=== PATIENT | male | born 1965 | race Caucasian/White ===

== ENCOUNTER 2016-05-07 10:39 | Inpatient (IN) | payer MEDICARE, OTHER ==
[2016-05-07] MEDS ORDERED: KETOROLAC 30 MG/ML 1 ML VIAL IVP STA (11:17)
[2016-05-07] MEDS ORDERED: SODIUM CHLORIDE 0.9% 1,000 ML IV ONE ×2 (11:17→12:33)
[2016-05-07] MEDS ORDERED: ONDANSETRON 4 MG/2 ML VIAL IVP STA (11:17)
[2016-05-07 11:48] LABS: Basophils % (A) 0 %; CH 29.9; CHCM 33.4; Eosinophils % (A) 0 %; HCT 54.5 % (39.0-53.0); HDW 2.86; HGB 17.6 gm/dL (13.0-17.5); Luc # (Auto) 0.04; Luc % (Auto) 1; Lymphocytes # (A) 0.4 k/uL (1.0-4.8); Lymphocytes % (A) 5 %; MCH 29.1 pg (25.0-35.0); MCHC 32.3 g/dL (31.0-37.0); MCV 90.2 fL (80.0-100.0); Mean Platelet Volume 9.5; Monocytes # (A) 0.3 k/uL (0-1.0); Monocytes % (A) 4 %; Neutrophils # (A) 6.7 k/uL (1.3-7.7); Neutrophils % (A) 90 %; RBC 6.04 m/uL (4.30-5.90); RDW 14.3 % (11.5-15.5); WBC 7.4 k/uL (3.8-10.6); WBC (Perox) 7.58
--- NOTE | 2016-05-07 11:48 | ED ---
General Adult HPI - General Chief complaint: Abdominal Pain Stated complaint: NVD, CHEST CONGESTION Time Seen by Provider: 05/07/16 11:07 Source: patient, RN notes reviewed Mode of arrival: ambulatory Limitations: no limitations - History of Present Illness Initial comments: 50-year-old male presenting for nausea vomiting and diarrhea which began this morning around 6 AM. He states that he has had several loose stools during this time. He also states he has some upper abdominal and epigastric tenderness which began after vomiting. He states some subjective fevers and chills. He denies any significant medical history otherwise. He denies any chest pain or shortness of breath. He does state he has a history of MS, but denies any new significant weakness or issue. - Related Data Home Medications Medication Instructions Recorded Confirmed Gabapentin 600 mg PO TID 03/01/14 05/07/16 Rivaroxaban [Xarelto] 20 mg PO AC-SUPPER 01/11/15 05/07/16 Multivitamins, Thera [Multivitamin] 1 tab PO DAILY 11/17/15 05/07/16 Omeprazole 20 mg PO BID 11/17/15 05/07/16 Digoxin [Lanoxin] 125 mcg PO DAILY 04/07/16 05/07/16 Acetaminophen-Codeine 300-30mg 1 tab PO Q6H PRN 05/07/16 05/07/16 [Tylenol #3] Baclofen [Lioresal] 10 mg PO TID PRN 05/07/16 05/07/16 Allergies Allergy/AdvReac Type Severity Reaction Status Date / Time No Known Allergies Allergy Verified 05/07/16 11:57 Review of Systems ROS Statement: Those systems with pertinent positive or pertinent negative responses have been documented in the HPI. Constitutional: No fevers. No chills. No change in appetite. No unexpected weight loss. Eyes: No visual changes. No eye pain. No sensitivity to light. HENT: No sinus pressure. No ear pain. No hearing changes. No epistaxis. No sore throat. Respiratory: No cough. No SOB. No wheezing. Cardiovascular: No chest pain. No palpitations. No lower extremity edema. Abdomen: Positive abdominal pain. Positive nausea. Positive vomiting. Positive diarrhea. Genitourinary: No dysuria. No hematuria. No difficulty urinating. No flank pain. Musculoskeletal: No injury. No back pain. No myalgias. Skin: No rash. No lesions. No lacerations. Neuro: No gross strength deficits. No LOC. No seizures. No headache. Psych: No confusion. No memory changes. No anxiety/depression. ROS Other: All systems not noted in ROS Statement are negative. Past Medical History Past Medical History: Atrial Fibrillation, Hyperlipidemia, Musculoskeletal Disorder, Pneumonia, Skin Disorder, Sleep Apnea/CPAP/BIPAP Additional Past Medical History / Comment(s): Pt had recent dobutamine stress echo 10/2015 -normal, MYTONIC MUSCULAR DYSTROPHY- USES OXYGEN at night via cpap , PSORIASIS. History of Any Multi-Drug Resistant Organisms: None Reported Past Surgical History: Heart Catheterization Additional Past Surgical History / Comment(s): bilateral cataract surgery, clean cardiac cath -2013, colonoscopy with 2 polyps removed Past Anesthesia/Blood Transfusion Reactions: No Reported Reaction Additional Past Anesthesia/Blood Transfusion Reaction / Comment(s): Pt states due to mytonic muscular dystrophy he is unable to have general or spinal anesthesia. Past Psychological History: No Psychological Hx Reported Additional Psychological History / Comment(s): Pt resides with his mother. He uses no assistive device. He drives. Smoking Status: Former smoker Past Alcohol Use History: None Reported Additional Past Alcohol Use History / Comment(s): started smoking at age 11 smoked 1 ppd till age 29 Past Drug Use History: None Reported - Past Family History Father Family Medical History: GERD/Reflux Additional Family Medical History / Comment(s): myotonic muscular dystropy, gerd. father is no longer living. Mother History Unknown: Yes Family Medical History: Cancer Additional Family Medical History / Comment(s): BREAST CANCER General Exam - General Exam Comments Initial Comments: General: Awake and Alert. No acute distress. Does not appear acutely ill. Eyes: NATALIA, EOM intact. No nystagmus. No scleral icterus. HENT: Atraumatic, normocephalic. Mucous membranes appear dry. Trachea midline. Neck: The neck is supple, there is no tenderness or JVD. Cardiovascular: Regular rate and rhythm. No murmur, rub, or gallop is appreciated. Distal pulses intact. Respiratory: Lungs are clear to auscultation bilaterally. No wheezes, rales, rhonchi. No respiratory distress. Gastrointestinal: Soft, with mild epigastric tenderness. No rebound or guarding. Non-distended. No masses or organomegaly noted. No CVA tenderness. Musculoskeletal: No tenderness. Normal ROM. No gross deformity. No strength deficits. Neurological: A&Ox3. CN II-XII grossly intact, There are no obvious motor or sensory deficits. Coordination appears grossly intact. Speech is normal. Skin: Skin is warm and dry and no rashes or lesions are noted. Psychiatric: Cooperative, appropriate mood & affect, normal judgment. Limitations: no limitations Course Vital Signs 05/07/16 05/07/16 05/07/16 10:47 11:45 12:45 Temperature 97.3 F L Pulse Rate 94 80 90 Respiratory 18 16 16 Rate Blood Pressure 113/78 107/69 108/75 O2 Sat by Pulse 96 90 L 90 L Oximetry 05/07/16 05/07/16 05/07/16 13:45 15:10 16:29 Temperature 7.9 F L Pulse Rate 84 86 98 Respiratory 16 16 18 Rate Blood Pressure 107/71 108/71 108/65 O2 Sat by Pulse 94 L 92 L 95 Oximetry Medical Decision Making - Medical Decision Making 50-year-old male presenting for nausea and vomiting and diarrhea. Patient appears clinically with signs of dehydration. Was started on IV fluids. Lab workup was performed. Given upper respiratory symptoms and GI symptoms influenza was performed which is negative. Lab workup is showing evidence of hemoconcentration and electrolyte abnormalities concerning for hypovolemia. Hypernatremia as noted. Patient was given 2 L of fluid for evidence of hypovolemia. Electrolytes were repeated which showed no improvement of his hypernatremia. Discussed with patient results and plan for admission for further treatment and monitoring hypernatremia and hypokalemia. Patient was started on half-normal saline. I called and discussed with Dr. Morales who is agreeable with plan for admission. - Lab Data Result diagrams: 05/07/16 11:35 05/07/16 14:55 Lab Results 05/07/16 05/07/16 05/07/16 Range/Units 11:35 11:35 14:55 WBC 7.4 (3.8-10.6) k/uL RBC 6.04 H (4.30-5.90) m/uL Hgb 17.6 H (13.0-17.5) gm/dL Hct 54.5 H (39.0-53.0) % MCV 90.2 (80.0-100.0) fL MCH 29.1 (25.0-35.0) pg MCHC 32.3 (31.0-37.0) g/dL RDW 14.3 (11.5-15.5) % Plt Count 133 L (150-450) k/uL Neutrophils % 90 % Lymphocytes % 5 % Monocytes % 4 % Eosinophils % 0 % Basophils % 0 % Neutrophils # 6.7 (1.3-7.7) k/uL Lymphocytes # 0.4 L (1.0-4.8) k/uL Monocytes # 0.3 (0-1.0) k/uL Eosinophils # 0.0 (0-0.7) k/uL Basophils # 0.0 (0-0.2) k/uL Sodium 150 H 150 H (137-145) mmol/L Potassium 4.6 4.7 (3.5-5.1) mmol/L Chloride 104 111 H (98-107) mmol/L Carbon Dioxide 37 H 24 (22-30) mmol/L Anion Gap 9 15 mmol/L BUN 18 15 (9-20) mg/dL Creatinine 0.71 0.58 L (0.66-1.25) mg/dL Est GFR (MDRD) Af Amer >60 >60 (>60 ml/min/1.73 sqM) Est GFR (MDRD) Non-Af >60 >60 (>60 ml/min/1.73 sqM) Glucose 143 H 103 H (74-99) mg/dL Calcium 9.4 8.7 (8.4-10.2) mg/dL Magnesium 2.1 (1.6-2.3) mg/dL Total Bilirubin 0.5 (0.2-1.3) mg/dL AST 38 (17-59) U/L ALT 45 (21-72) U/L Alkaline Phosphatase 118 (38-126) U/L Total Protein 6.8 (6.3-8.2) g/dL Albumin 3.8 (3.5-5.0) g/dL Lipase 113 (23-300) U/L Influenza Type A RNA (Not Detectd) Influenza Type B (PCR) (Not Detectd) 05/07/16 Range/Units 15:00 WBC (3.8-10.6) k/uL RBC (4.30-5.90) m/uL Hgb (13.0-17.5) gm/dL Hct (39.0-53.0) % MCV (80.0-100.0) fL MCH (25.0-35.0) pg MCHC (31.0-37.0) g/dL RDW (11.5-15.5) % Plt Count (150-450) k/uL Neutrophils % % Lymphocytes % % Monocytes % % Eosinophils % % Basophils % % Neutrophils # (1.3-7.7) k/uL Lymphocytes # (1.0-4.8) k/uL Monocytes # (0-1.0) k/uL Eosinophils # (0-0.7) k/uL Basophils # (0-0.2) k/uL Sodium (137-145) mmol/L Potassium (3.5-5.1) mmol/L Chloride (98-107) mmol/L Carbon Dioxide (22-30) mmol/L Anion Gap mmol/L BUN (9-20) mg/dL Creatinine (0.66-1.25) mg/dL Est GFR (MDRD) Af Amer (>60 ml/min/1.73 sqM) Est GFR (MDRD) Non-Af (>60 ml/min/1.73 sqM) Glucose (74-99) mg/dL Calcium (8.4-10.2) mg/dL Magnesium (1.6-2.3) mg/dL Total Bilirubin (0.2-1.3) mg/dL AST (17-59) U/L ALT (21-72) U/L Alkaline Phosphatase (38-126) U/L Total Protein (6.3-8.2) g/dL Albumin (3.5-5.0) g/dL Lipase (23-300) U/L Influenza Type A RNA Not Detected (Not Detectd) Influenza Type B (PCR) Not Detected (Not Detectd) Disposition Clinical Impression: Hypernatremia, Hypovolemia, Nausea, vomiting and diarrhea Disposition: ADMITTED IP TO THIS [facility] Condition: Stable Decision to Admit Reason: Admit from EC
[2016-05-07 12:14] LABS: ALT 45 U/L (21-72); AST 38 U/L (17-59); Alkaline Phosphatase 118 U/L (38-126); Anion Gap 9 mmol/L; Blood Urea Nitrogen 18 mg/dL (9-20); Calcium 9.4 mg/dL (8.4-10.2); Carbon Dioxide 37 mmol/L (22-30); Chloride 104 mmol/L (98-107); Glucose 143 mg/dL (74-99); Magnesium 2.1 mg/dL (1.6-2.3); Non-African American GFR(MDRD) >60 (>60 ml/min/1.73 sqM); Potassium 4.6 mmol/L (3.5-5.1); Sodium 150 mmol/L (137-145); Total Bilirubin 0.5 mg/dL (0.2-1.3); Total Protein 6.8 g/dL (6.3-8.2)
[2016-05-07] MEDS ORDERED: FAMOTIDINE 20 MG/2 ML VIAL IV STA (15:12)
[2016-05-07 15:19] LABS: Anion Gap 15 mmol/L; Blood Urea Nitrogen 15 mg/dL (9-20); Calcium 8.7 mg/dL (8.4-10.2); Carbon Dioxide 24 mmol/L (22-30); Chloride 111 mmol/L (98-107); Glucose 103 mg/dL (74-99); Non-African American GFR(MDRD) >60 (>60 ml/min/1.73 sqM); Sodium 150 mmol/L (137-145)
[2016-05-07 15:22] LABS: Potassium 4.7 mmol/L (3.5-5.1)
[2016-05-07] MEDS ORDERED: SODIUM CHLORIDE 0.45% 1,000 ML IV SCH (15:45)
[2016-05-07] MEDS ORDERED: ONDANSETRON 4 MG/2 ML VIAL IVP PRN (16:04)
[2016-05-07] MEDS ORDERED: NALOXONE 0.4 MG/ML 1 ML VIAL IV PRN (16:04)
[2016-05-07] MEDS ORDERED: KETOROLAC 30 MG/ML 1 ML VIAL IVP PRN (16:04)
[2016-05-07] MEDS ORDERED: ACETAMINOPHEN TAB 325 MG TAB PO PRN (16:04)
[2016-05-07] MEDS: SODIUM CHLORIDE 0.45% 1,000 ML IV SCH (17:20)
[2016-05-07] MEDS ORDERED: BACLOFEN 10 MG TAB PO PRN (18:12)
[2016-05-07] MEDS ORDERED: Acetaminophen-Codeine 300-30mg TAB PO PRN (18:12)
[2016-05-07] MEDS ORDERED: METOCLOPRAMIDE 5 MG/ML 2 ML VIAL IVP PRN (18:13)
[2016-05-07 19:54] LABS: INR 1.5 (<1.1); Prothrombin Time 14.2 sec (9.0-12.0)
[2016-05-07] MEDS: PANTOPRAZOLE 40 MG TABLET PO SCH (21:52)
[2016-05-07] MEDS: GABAPENTIN 300 MG CAP PO SCH (21:52)
[2016-05-08] MEDS: SODIUM CHLORIDE 0.45% 1,000 ML IV SCH ×5 (05:02→21:53)
[2016-05-08 08:04] LABS: Anion Gap 7 mmol/L; Blood Urea Nitrogen 11 mg/dL (9-20); Carbon Dioxide 30 mmol/L (22-30); Chloride 104 mmol/L (98-107); Glucose 111 mg/dL (74-99); Non-African American GFR(MDRD) >60 (>60 ml/min/1.73 sqM); Sodium 141 mmol/L (137-145)
[2016-05-08] MEDS: PANTOPRAZOLE 40 MG TABLET PO SCH ×2 (08:24→16:31)
[2016-05-08] MEDS: GABAPENTIN 300 MG CAP PO SCH ×3 (08:24→21:52)
[2016-05-08] MEDS: MULTIVITAMINS, THERA 1 EACH TAB PO SCH (08:25)
--- NOTE | 2016-05-08 15:41 | P.HPIM ---
History of Present Illness H&P Date: 05/08/16 56-year-old gentleman with history of muscular dystrophy comes in the hospital with abdominal pain inability to tolerate oral liquids or solids and watery diarrhea for the last 2 days. Patient stated that he was in his normal health prior to admission. In the ER patient was noted to have a sodium of 151. Patient was given 2 L of normal saline. Thereafter was started on half-normal saline at 1 50 mL per hour. Today patient states to have continued pain in his epigastric region denies having any fevers, chills, nausea. Patient was able to tolerate his diet today. Continues to have watery bowel movements. Denies using any antibiotics with the last 3 months. Review of Systems All systems: negative (Noted in HPI) Past Medical History Past Medical History: Atrial Fibrillation, Hyperlipidemia, Musculoskeletal Disorder, Pneumonia, Skin Disorder, Sleep Apnea/CPAP/BIPAP Additional Past Medical History / Comment(s): Pt had recent dobutamine stress echo 10/2015 -normal, MYTONIC MUSCULAR DYSTROPHY- USES OXYGEN at night via cpap , PSORIASIS. History of Any Multi-Drug Resistant Organisms: None Reported Past Surgical History: Heart Catheterization Additional Past Surgical History / Comment(s): bilateral cataract surgery, clean cardiac cath -2013, colonoscopy with 2 polyps removed Past Anesthesia/Blood Transfusion Reactions: No Reported Reaction Additional Past Anesthesia/Blood Transfusion Reaction / Comment(s): Pt states due to mytonic muscular dystrophy he is unable to have general or spinal anesthesia. Past Psychological History: No Psychological Hx Reported Additional Psychological History / Comment(s): Pt resides with his mother. He uses no assistive device. He drives. Smoking Status: Former smoker Past Alcohol Use History: None Reported Additional Past Alcohol Use History / Comment(s): started smoking at age 11 smoked 1 ppd till age 29 Past Drug Use History: None Reported - Past Family History Father Family Medical History: GERD/Reflux Additional Family Medical History / Comment(s): myotonic muscular dystropy, gerd. father is no longer living. Mother History Unknown: Yes Family Medical History: Cancer Additional Family Medical History / Comment(s): BREAST CANCER Medications and Allergies Home Medications Medication Instructions Recorded Confirmed Type Gabapentin 600 mg PO TID 03/01/14 05/07/16 History Rivaroxaban [Xarelto] 20 mg PO AC-SUPPER 01/11/15 05/07/16 History Multivitamins, Thera [Multivitamin] 1 tab PO DAILY 11/17/15 05/07/16 History Omeprazole 20 mg PO BID 11/17/15 05/07/16 History Digoxin [Lanoxin] 125 mcg PO DAILY 04/07/16 05/07/16 History Acetaminophen-Codeine 300-30mg 1 tab PO Q6H PRN 05/07/16 05/07/16 History [Tylenol #3] Baclofen [Lioresal] 10 mg PO TID PRN 05/07/16 05/07/16 History Allergies Allergy/AdvReac Type Severity Reaction Status Date / Time No Known Allergies Allergy Verified 05/07/16 11:57 Physical Exam Vitals: Vital Signs Temp Pulse Pulse Pulse Resp BP BP 05/08/16 15:00 98.3 F 100 18 118/69 05/08/16 08:00 108 H 77 18 05/08/16 07:00 97.8 F 77 18 107/71 05/08/16 00:00 108 H 95 16 05/07/16 22:19 98.6 F 95 16 110/74 05/07/16 17:28 97.7 F 108 H 16 126/77 05/07/16 16:29 7.9 F L 98 18 108/65 Pulse Ox 05/08/16 15:00 92 L 05/08/16 08:00 05/08/16 07:00 100 05/08/16 00:00 05/07/16 22:19 92 L 05/07/16 17:28 95 05/07/16 16:29 95 Intake and Output 05/08/16 05/08/16 05/08/16 06:59 14:59 22:59 Intake Total 380 Balance 380 Intake: Oral 380 Other: Voiding Method Toilet Toilet Urinal Urinal # Voids 3 Gen. appearance alert oriented 3 does not appear to be in distress Heart irregularly irregular no murmurs appreciated Lungs good air entry clear to auscultation Abdomen soft tender to palpation in epigastric region no rebound tenderness appreciated bowel sounds are intact Lower extremities no edema appreciated Results CBC & Chem 7: 05/07/16 11:35 05/08/16 07:29 Labs: Abnormal Lab Results - Last 24 Hours (Table) 05/08/16 Range/Units 07:29 Creatinine 0.60 L (0.66-1.25) mg/dL Glucose 111 H (74-99) mg/dL Calcium 8.0 L (8.4-10.2) mg/dL Thrombosis Risk Factor Assmnt - Choose All That Apply Any of the Below Risk Factors Present?: Yes Each Factor Represents 1 point: Age 41-60 years, Obesity (BMI >25) Other Risk Factors: No Other congenital or acquired thrombophilia - If yes, enter type in comment: No Thrombosis Risk Factor Assessment Total Risk Factor Score: 2 Thrombosis Risk Factor Assessment Level: Low Risk Assessment and Plan Plan: #1 intractable nausea vomiting likely secondary to gastroenteritis use of digoxin #2 hypernatremia which is hypovolemic secondary to #1 #3 muscular dystrophy #4 psoriasis psoriasis #5 dyslipidemia #6 chronic atrial fibrillation currently on any correlation #7 objective sleep apnea Plan Continue symptom control. Digoxin was held. Repeat sodium in the a.m. Patient will likely be discharged home in the next 24 hours.
[2016-05-08] MEDS ORDERED: RIVAROXABAN 10 MG TAB PO SCH (17:30)
[2016-05-08 22:21] VITALS: RESP 16
[2016-05-09] MEDS: SODIUM CHLORIDE 0.45% 1,000 ML IV SCH ×2 (06:45→11:39)
[2016-05-09 08:21] LABS: ALT 55 U/L (21-72); AST 68 U/L (17-59); Alkaline Phosphatase 119 U/L (38-126); Anion Gap 7 mmol/L; Blood Urea Nitrogen 9 mg/dL (9-20); Calcium 8.1 mg/dL (8.4-10.2); Carbon Dioxide 30 mmol/L (22-30); Chloride 110 mmol/L (98-107); Glucose 93 mg/dL (74-99); Non-African American GFR(MDRD) >60 (>60 ml/min/1.73 sqM); Potassium 3.8 mmol/L (3.5-5.1); Sodium 147 mmol/L (137-145); Total Protein 5.2 g/dL (6.3-8.2)
[2016-05-09] MEDS: MULTIVITAMINS, THERA 1 EACH TAB PO SCH (08:33)
[2016-05-09] MEDS: PANTOPRAZOLE 40 MG TABLET PO SCH (08:33)
[2016-05-09] MEDS: GABAPENTIN 300 MG CAP PO SCH ×2 (08:33→16:22)
[2016-05-09 08:36] LABS: Basophils % (A) 0 %; CH 29.4; CHCM 31.9; Eosinophils # (A) 0.1 k/uL (0-0.7); Eosinophils % (A) 1 %; HCT 46.9 % (39.0-53.0); HDW 2.92; HGB 15.4 gm/dL (13.0-17.5); Luc # (Auto) 0.29; Luc % (Auto) 3; Lymphocytes # (A) 0.8 k/uL (1.0-4.8); Lymphocytes % (A) 10 %; MCH 30.6 pg (25.0-35.0); MCV 92.9 fL (80.0-100.0); Mean Platelet Volume 9.1; Monocytes # (A) 0.8 k/uL (0-1.0); Monocytes % (A) 10 %; Neutrophils # (A) 6.5 k/uL (1.3-7.7); Neutrophils % (A) 76 %; RBC 5.05 m/uL (4.30-5.90); RDW 14.5 % (11.5-15.5); WBC 8.5 k/uL (3.8-10.6); WBC (Perox) 9.08
[2016-05-09 09:23] VITALS: BP 95/54; PULSE 87; TEMP 98.2
--- NOTE | 2016-05-09 15:50 | P.DS ---
Providers Date of admission: 05/07/16 16:04 Attending physician: Brady Morales MD Primary care physician: Ayla Barfield [facility] Course: 56-year-old gentleman with history of muscular dystrophy comes in the hospital with abdominal pain inability to tolerate oral liquids or solids and watery diarrhea for the last 2 days. Patient stated that he was in his normal health prior to admission. In the ER patient was noted to have a sodium of 151. Patient was given 2 L of normal saline. Thereafter was started on half-normal saline at 1 50 mL per hour. Today patient states to have continued pain in his epigastric region denies having any fevers, chills, nausea. Patient was able to tolerate his diet today. Continues to have watery bowel movements. Denies using any antibiotics with the last 3 months. On the day of discharge Patient is symptom free. States to be tolerating diet. Medications and Allergies Home Medications Medication Instructions Recorded Confirmed Type Gabapentin 600 mg PO TID 03/01/14 05/07/16 History Rivaroxaban [Xarelto] 20 mg PO AC-SUPPER 01/11/15 05/07/16 History Multivitamins, Thera [Multivitamin] 1 tab PO DAILY 11/17/15 05/07/16 History Omeprazole 20 mg PO BID 11/17/15 05/07/16 History Digoxin [Lanoxin] 125 mcg PO DAILY 04/07/16 05/07/16 History Acetaminophen-Codeine 300-30mg 1 tab PO Q6H PRN 05/07/16 05/07/16 History [Tylenol #3] Baclofen [Lioresal] 10 mg PO TID PRN 05/07/16 05/07/16 History Allergies Allergy/AdvReac Type Severity Reaction Status Date / Time No Known Allergies Allergy Verified 05/07/16 11:57 Physical Exam Vitals: Vital Signs Temp Pulse Pulse Pulse Resp BP BP 05/08/16 15:00 98.3 F 100 18 118/69 05/08/16 08:00 108 H 77 18 05/08/16 07:00 97.8 F 77 18 107/71 05/08/16 00:00 108 H 95 16 05/07/16 22:19 98.6 F 95 16 110/74 05/07/16 17:28 97.7 F 108 H 16 126/77 05/07/16 16:29 7.9 F L 98 18 108/65 Pulse Ox 05/08/16 15:00 92 L 05/08/16 08:00 05/08/16 07:00 100 05/08/16 00:00 05/07/16 22:19 92 L 05/07/16 17:28 95 05/07/16 16:29 95 Intake and Output 05/08/16 05/08/16 05/08/16 06:59 14:59 22:59 Intake Total 380 Balance 380 Intake: Oral 380 Other: Voiding Method Toilet Toilet Urinal Urinal # Voids 3 Gen. appearance alert oriented 3 does not appear to be in distress Heart irregularly irregular no murmurs appreciated Lungs good air entry clear to auscultation Abdomen soft tender to palpation in epigastric region no rebound tenderness appreciated bowel sounds are intact Lower extremities no edema appreciated Plan: #1 intractable nausea vomiting likely secondary to gastroenteritis #2 hypernatremia which is hypovolemic secondary to #1 #3 muscular dystrophy #4 psoriasis psoriasis #5 dyslipidemia #6 chronic atrial fibrillation currently on any correlation #7 objective sleep apnea Plan Hypernatremia is improved. Patient was prescribed Zofran. Patient is discharged home in stable condition. Patient Condition at Discharge: Stable Plan - Discharge Summary New Discharge Prescriptions: Ondansetron HCl [Zofran] 4 mg PO Q6H #30 tablet Discharge Medication List Gabapentin 600 mg PO TID 03/01/14 [History] Rivaroxaban [Xarelto] 20 mg PO AC-SUPPER 01/11/15 [History] Multivitamins, Thera [Multivitamin] 1 tab PO DAILY 11/17/15 [History] Omeprazole 20 mg PO BID 11/17/15 [History] Digoxin [Lanoxin] 125 mcg PO DAILY 04/07/16 [History] Acetaminophen-Codeine 300-30mg [Tylenol w/codeine #3] 1 tab PO Q6H PRN 05/07/16 [History] Baclofen [Lioresal] 10 mg PO TID PRN 05/07/16 [History] Ondansetron HCl [Zofran] 4 mg PO Q6H #30 tablet 05/09/16 [Rx] Follow up Appointment(s)/Referral(s): Ayla Garner MD [Primary Care Provider] - 1-2 days Patient Instructions/Handouts: Acute Nausea and Vomiting (DC), Acute Diarrhea ( GEN), Hypernatremia (DC) Discharge Disposition: HOME SELF-CARE
== END 2016-05-09 16:45 | disposition home or self-care (01) | DRG 641 ==
LOC: EC 10:39 → 5MS5E 16:04
PROVIDERS: ADMIT Internal Medicine; ATTEND Internal Medicine
DX: E87.0 Hyperosmolality and hypernatremia (principal); E86.1 Hypovolemia; G71.0 Muscular dystrophy; Z99.81 Dependence on supplemental oxygen; E78.5 Hyperlipidemia, unspecified; I48.2 Chronic atrial fibrillation; G47.30 Sleep apnea, unspecified; K52.9 Noninfective gastroenteritis and colitis, unspecified; L40.9 Psoriasis, unspecified; Z87.891 Personal history of nicotine dependence; Z79.01 Long term (current) use of anticoagulants; Z79.899 Other long term (current) drug therapy
CPT/HCPCS: 36415; 80048; 80053; 80162; 83690; 83735; 85025; 85610; 87502; 96361; 96374; 96375; 99285

== ENCOUNTER 2017-01-18 17:00 | Inpatient (IN) | payer MEDICARE, OTHER ==
[2017-01-18] MEDS ORDERED: MORPHINE SULFATE 4 MG/ML SYRINGE IV STA (18:50)
[2017-01-18] MEDS ORDERED: RX INFO: IV CONTRAST WAS GIVEN 1 EACH MISC MISCELLANE PRN (18:50)
[2017-01-18] MEDS ORDERED: SODIUM CHLORIDE 0.9% 1,000 ML IV STA (18:50)
[2017-01-18 19:16] LABS: Basophils % (A) 1 %; CH 31.4; CHCM 34.1; Eosinophils # (A) 0.1 k/uL (0-0.7); Eosinophils % (A) 1 %; HCT 59.5 % (39.0-53.0); HDW 2.69; HGB 19.2 gm/dL (13.0-17.5); Luc # (Auto) 0.11; Luc % (Auto) 2; Lymphocytes # (A) 0.9 k/uL (1.0-4.8); Lymphocytes % (A) 15 %; MCH 29.9 pg (25.0-35.0); MCHC 32.3 g/dL (31.0-37.0); MCV 92.5 fL (80.0-100.0); Mean Platelet Volume 9.8; Monocytes # (A) 0.5 k/uL (0-1.0); Monocytes % (A) 7 %; Neutrophils # (A) 4.6 k/uL (1.3-7.7); Neutrophils % (A) 74 %; RBC 6.43 m/uL (4.30-5.90); RDW 15.8 % (11.5-15.5); WBC 6.2 k/uL (3.8-10.6); WBC (Perox) 6.62
[2017-01-18 19:29] LABS: ALT 59 U/L (21-72); AST 82 U/L (17-59); Alkaline Phosphatase 116 U/L (38-126); Amylase 38 U/L (30-110); Anion Gap 11 mmol/L; Blood Urea Nitrogen 31 mg/dL (9-20); Calcium 9.2 mg/dL (8.4-10.2); Carbon Dioxide 30 mmol/L (22-30); Chloride 104 mmol/L (98-107); Glucose 110 mg/dL (74-99); Non-African American GFR(MDRD) >60 (>60 ml/min/1.73 sqM); Potassium 4.3 mmol/L (3.5-5.1); Sodium 145 mmol/L (137-145); Total Bilirubin 0.8 mg/dL (0.2-1.3)
--- NOTE | 2017-01-18 20:29 | CT ---
EXAMINATION TYPE: CT abdomen pelvis w con DATE OF EXAM: 01/18/2017 COMPARISON: 11/08/2014 HISTORY: Generalized pain with vomiting and diarrhea CT DLP: 552.7 mGycm Automated exposure control for dose reduction was used. TECHNIQUE: Helical acquisition of images was performed from the lung bases through the pelvis. CONTRAST: Performed without Oral Contrast and with IV Contrast, patient injected with 100 mL of Omnipaque 300. FINDINGS: There is mild infiltrate and atelectasis at the right and left posterior lung base. There is no pleur al effusion. There is interposition of the hepatic flexure of the colon which is a normal variant. Li adelso shows no focal defect. Gallbladder appears normal. Bile ducts are not dilated. There is no pancre atic mass. Spleen appears normal. There is no adrenal mass. Kidneys show satisfactory contrast opacification. There is no hydronephrosi s. There is no retroperitoneal adenopathy. There are some mildly dilated loops of fluid-filled small bowel in the mid abdomen. These measure up to 3.3 cm. There is no evidence of pneumoperitoneum. The small bowel is dilated to the cecum. The carlos endix appears normal. I see no intestinal wall thickening. Large bowel is not dilated. I see no focal bony destructive process. Bladder distends smoothly. There is no evidence of a pelvic mass. IMPRESSION: DILATED SMALL BOWEL DOWN TO THE CECUM. NO OBSTRUCTING LESION IDENTIFIED. THIS IS PROBABLY DUE TO SIGN IFICANT SMALL BOWEL ILEUS THAT APPEARS NEW COMPARED TO OLD EXAM. THERE IS PARTIAL CLEARING OF THE BILATERAL BASILAR PULMONARY INFILTRATES AND ATELECTASIS COMPARED TO OLD EXAM.
[2017-01-18 20:44] LABS: Appearance,Urine Clear (Clear); Bilirubin,Urine Negative (Negative); Glucose,Urine (UA) Negative (Negative); Ketones,Urine Trace (Negative); Leukocyte Esterase,Urine Negative (Negative); Nitrite,Urine Negative (Negative); Protein,Urine Trace (Negative); UA Billing (MACRO vs. MICRO) CHEM; Urobilinogen,Urine <2.0 mg/dL (<2.0)
--- NOTE | 2017-01-18 20:47 | ED ---
Abdominal Pain HPI - General Chief Complaint: Abdominal Pain Stated Complaint: NVD, Abd Pain Time Seen by Provider: 01/18/17 18:50 Source: patient Mode of arrival: ambulatory Limitations: no limitations - History of Present Illness Initial Comments: Patient complains of worsening abdominal pain for the last 3 days. Nothing makes it better or worse. He feels like he can't keep anything down. He has nausea. He has no blood in the stool. He has no black or tarry stool. He has decreased bowel movements. He has no chest pain. He has no back pain. He has no headache. He has taken no medication for his symptoms. He was not doing anything when this began. His abdominal pain is diffuse without localization or radiation. - Related Data Home Medications Medication Instructions Recorded Confirmed Gabapentin 600 mg PO TID 03/01/14 01/18/17 Rivaroxaban [Xarelto] 20 mg PO AC-SUPPER 01/11/15 01/18/17 Multivitamins, Thera [Multivitamin 1 tab PO DAILY 11/17/15 01/18/17 (formulary)] Omeprazole 20 mg PO BID 11/17/15 01/18/17 Digoxin [Lanoxin] 125 mcg PO DAILY 04/07/16 01/18/17 Baclofen [Lioresal] 10 mg PO TID PRN 05/07/16 01/18/17 Polyethylene Glycol 3350 [Miralax] 17 gm PO DAILY PRN 01/18/17 01/18/17 Allergies Allergy/AdvReac Type Severity Reaction Status Date / Time No Known Allergies Allergy Verified 01/18/17 19:04 Review of Systems ROS Statement: Those systems with pertinent positive or pertinent negative responses have been documented in the HPI. ROS Other: All systems not noted in ROS Statement are negative. Past Medical History Past Medical History: Atrial Fibrillation, Hyperlipidemia, Musculoskeletal Disorder, Pneumonia, Skin Disorder, Sleep Apnea/CPAP/BIPAP Additional Past Medical History / Comment(s): Pt had recent dobutamine stress echo 10/2015 -normal, MYTONIC MUSCULAR DYSTROPHY- USES OXYGEN at night via cpap , PSORIASIS. History of Any Multi-Drug Resistant Organisms: None Reported Past Surgical History: Heart Catheterization Additional Past Surgical History / Comment(s): bilateral cataract surgery, clean cardiac cath -2013, colonoscopy with 2 polyps removed Past Anesthesia/Blood Transfusion Reactions: No Reported Reaction Additional Past Anesthesia/Blood Transfusion Reaction / Comment(s): Pt states due to mytonic muscular dystrophy he is unable to have general or spinal anesthesia. Past Psychological History: No Psychological Hx Reported Smoking Status: Former smoker Past Alcohol Use History: None Reported Past Drug Use History: None Reported - Past Family History Father Family Medical History: GERD/Reflux Additional Family Medical History / Comment(s): myotonic muscular dystropy, gerd. father is no longer living. Mother History Unknown: Yes Family Medical History: Cancer Additional Family Medical History / Comment(s): BREAST CANCER General Exam Limitations: no limitations General appearance: alert, in no apparent distress Head exam: Present: atraumatic, normocephalic, normal inspection Eye exam: Present: normal appearance, PERRL, EOMI. Absent: scleral icterus, conjunctival injection, periorbital swelling ENT exam: Present: normal exam, mucous membranes moist Neck exam: Present: normal inspection. Absent: tenderness, meningismus, lymphadenopathy Respiratory exam: Present: normal lung sounds bilaterally. Absent: respiratory distress, wheezes, rales, rhonchi, stridor Cardiovascular Exam: Present: regular rate, normal rhythm, normal heart sounds. Absent: systolic murmur, diastolic murmur, rubs, gallop, clicks GI/Abdominal exam: Present: soft, distended, tenderness, normal bowel sounds. Absent: guarding, rebound, rigid Extremities exam: Present: normal inspection, full ROM, normal capillary refill. Absent: tenderness, pedal edema, joint swelling, calf tenderness Back exam: Present: normal inspection Neurological exam: Present: alert, oriented X3, CN II-XII intact Psychiatric exam: Present: normal affect, normal mood Skin exam: Present: warm, dry, intact, normal color. Absent: rash Course Vital Signs 01/18/17 01/18/17 01/18/17 18:42 19:26 20:42 Temperature 98.9 F Pulse Rate 60 90 91 Respiratory 18 16 16 Rate Blood Pressure 97/58 94/70 120/73 O2 Sat by Pulse 98 99 95 Oximetry Medical Decision Making - Medical Decision Making Patient presents with abdominal pain. He is tender and distended. CT reveals ileus. I'm concern for progression to bowel obstruction. He has not tolerating orotate. He will be admitted to the hospital. I will consult surgery. - Lab Data Result diagrams: 01/18/17 19:07 01/18/17 19:07 Lab Results 01/18/17 01/18/17 01/18/17 Range/Units 19:07 19:07 19:07 WBC 6.2 (3.8-10.6) k/uL RBC 6.43 H (4.30-5.90) m/uL Hgb 19.2 H (13.0-17.5) gm/dL Hct 59.5 H (39.0-53.0) % MCV 92.5 (80.0-100.0) fL MCH 29.9 (25.0-35.0) pg MCHC 32.3 (31.0-37.0) g/dL RDW 15.8 H (11.5-15.5) % Plt Count 134 L (150-450) k/uL Neutrophils % 74 % Lymphocytes % 15 % Monocytes % 7 % Eosinophils % 1 % Basophils % 1 % Neutrophils # 4.6 (1.3-7.7) k/uL Lymphocytes # 0.9 L (1.0-4.8) k/uL Monocytes # 0.5 (0-1.0) k/uL Eosinophils # 0.1 (0-0.7) k/uL Basophils # 0.0 (0-0.2) k/uL Sodium 145 (137-145) mmol/L Potassium 4.3 (3.5-5.1) mmol/L Chloride 104 (98-107) mmol/L Carbon Dioxide 30 (22-30) mmol/L Anion Gap 11 mmol/L BUN 31 H (9-20) mg/dL Creatinine 0.90 (0.66-1.25) mg/dL Est GFR (MDRD) Af Amer >60 (>60 ml/min/1.73 sqM) Est GFR (MDRD) Non-Af >60 (>60 ml/min/1.73 sqM) Glucose 110 H (74-99) mg/dL Calcium 9.2 (8.4-10.2) mg/dL Total Bilirubin 0.8 (0.2-1.3) mg/dL AST 82 H (17-59) U/L ALT 59 (21-72) U/L Alkaline Phosphatase 116 (38-126) U/L Troponin I <0.012 (0.000-0.034) ng/mL Total Protein 7.0 (6.3-8.2) g/dL Albumin 3.9 (3.5-5.0) g/dL Amylase 38 (30-110) U/L Lipase 153 (23-300) U/L Urine Color Urine Appearance (Clear) Urine pH (5.0-8.0) Urine Protein (Negative) Urine Glucose (UA) (Negative) Urine Ketones (Negative) Urine Blood (Negative) Urine Nitrite (Negative) Urine Bilirubin (Negative) Urine Urobilinogen (<2.0) mg/dL Ur Leukocyte Esterase (Negative) 01/18/17 Range/Units 20:33 WBC (3.8-10.6) k/uL RBC (4.30-5.90) m/uL Hgb (13.0-17.5) gm/dL Hct (39.0-53.0) % MCV (80.0-100.0) fL MCH (25.0-35.0) pg MCHC (31.0-37.0) g/dL RDW (11.5-15.5) % Plt Count (150-450) k/uL Neutrophils % % Lymphocytes % % Monocytes % % Eosinophils % % Basophils % % Neutrophils # (1.3-7.7) k/uL Lymphocytes # (1.0-4.8) k/uL Monocytes # (0-1.0) k/uL Eosinophils # (0-0.7) k/uL Basophils # (0-0.2) k/uL Sodium (137-145) mmol/L Potassium (3.5-5.1) mmol/L Chloride (98-107) mmol/L Carbon Dioxide (22-30) mmol/L Anion Gap mmol/L BUN (9-20) mg/dL Creatinine (0.66-1.25) mg/dL Est GFR (MDRD) Af Amer (>60 ml/min/1.73 sqM) Est GFR (MDRD) Non-Af (>60 ml/min/1.73 sqM) Glucose (74-99) mg/dL Calcium (8.4-10.2) mg/dL Total Bilirubin (0.2-1.3) mg/dL AST (17-59) U/L ALT (21-72) U/L Alkaline Phosphatase (38-126) U/L Troponin I (0.000-0.034) ng/mL Total Protein (6.3-8.2) g/dL Albumin (3.5-5.0) g/dL Amylase (30-110) U/L Lipase (23-300) U/L Urine Color Yellow Urine Appearance Clear (Clear) Urine pH 6.0 (5.0-8.0) Urine Protein Trace H (Negative) Urine Glucose (UA) Negative (Negative) Urine Ketones Trace H (Negative) Urine Blood Negative (Negative) Urine Nitrite Negative (Negative) Urine Bilirubin Negative (Negative) Urine Urobilinogen <2.0 (<2.0) mg/dL Ur Leukocyte Esterase Negative (Negative) 01/18/17 20:46 Twelve-lead EKG is obtained, interpreted by me as showing no P waves, there is atrial fibrillation, ventricular response is 84 bpm, the QRS complexes are normal. There is no ST elevation or depression, interpreted by me as atrial fibrillation without acute ischemia. Disposition Clinical Impression: Small bowel obstruction Disposition: ADMITTED IP TO THIS HOSP Condition: Fair Referrals: Ayla Garner MD [Primary Care Provider] - 1-2 days
[2017-01-18] MEDS ORDERED: MORPHINE SULFATE 4 MG/ML SYRINGE IV PRN (20:48)
[2017-01-18] MEDS ORDERED: ONDANSETRON 4 MG/2 ML VIAL IVP PRN (20:48)
[2017-01-18] MEDS ORDERED: NALOXONE 0.4 MG/ML 1 ML VIAL IV PRN (20:48)
[2017-01-18] MEDS ORDERED: traMADol 50 MG TAB PO PRN (20:48)
[2017-01-18] MEDS ORDERED: BACLOFEN 10 MG TAB PO PRN (20:50)
[2017-01-18] MEDS ORDERED: POLYETHYLENE GLYCOL 3350 17 GM POWD.PACK PO PRN (20:50)
[2017-01-18] MEDS: DEXTROSE 5%-0.45% NACL 1,000 ML IV SCH (22:14)
[2017-01-19] MEDS ORDERED: DIGOXIN 125 MCG TAB PO SCH (09:00)
[2017-01-19] MEDS: DIGOXIN 250 MCG/ML 2 ML AMP IVP SCH (11:01)
[2017-01-19] MEDS: GABAPENTIN 300 MG CAP PO SCH ×3 (11:41→21:15)
[2017-01-19] MEDS: PANTOPRAZOLE 40 MG/10 ML VIAL IV SCH (11:55)
--- NOTE | 2017-01-19 12:52 | P.GSCN ---
History of Present Illness Consult date: 01/19/17 Reason for Consult: Abdominal pain, nausea History of present illness: This a 51-year-old male who presents emergency room last night with complaints of abdominal pain nausea. He had several episodes of emesis. Patient to CAT scan performed which showed dilated small bowel consistent with small bowel ileus. The patient states he still has some abdominal pain today however his nausea has improved. 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 History of Any Multi-Drug Resistant Organisms: None Reported Past Surgical History: Heart Catheterization Additional Past Surgical History / Comment(s): bilateral cataract removal with lens implants surgery, normal cardiac cath -2013, colonoscopy with 2 benign polyps removed Past Anesthesia/Blood Transfusion Reactions: No Reported Reaction Additional Past Anesthesia/Blood Transfusion Reaction / Comm: Pt states due to mytonic muscular dystrophy he is unable to have general or spinal anesthesia. Smoking Status: Former smoker - Past Family History Father Family Medical History: GERD/Reflux Additional Family Medical History / Comment(s): myotonic muscular dystropy, gerd. father is no longer living-he had a cardiac arrest at the age of 67yrs. Mother History Unknown: Yes Family Medical History: Cancer Additional Family Medical History / Comment(s): BREAST CANCER. Mother is 81 yrs old. Medications and Allergies Home Medications Medication Instructions Recorded Confirmed Type Gabapentin 600 mg PO TID 03/01/14 01/18/17 History Rivaroxaban [Xarelto] 20 mg PO AC-SUPPER 01/11/15 01/18/17 History Multivitamins, Thera [Multivitamin 1 tab PO DAILY 11/17/15 01/18/17 History (formulary)] Omeprazole 20 mg PO BID 11/17/15 01/18/17 History Digoxin [Lanoxin] 125 mcg PO DAILY 04/07/16 01/18/17 History Baclofen [Lioresal] 10 mg PO TID PRN 05/07/16 01/18/17 History Polyethylene Glycol 3350 [Miralax] 17 gm PO DAILY PRN 01/18/17 01/18/17 History Allergies Allergy/AdvReac Type Severity Reaction Status Date / Time No Known Allergies Allergy Verified 01/18/17 19:04 Surgical - Exam Vital Signs Temp Pulse Resp BP Pulse Ox 98.9 F 60 18 97/58 98 01/18/17 18:42 01/18/17 18:42 01/18/17 18:42 01/18/17 18:42 01/18/17 18:42 - General well developed, no distress - Eyes PERRL - ENT normal pinna - Neck no masses - Respiratory normal expansion - Cardiovascular Rhythm: regular - Abdomen Abdomen soft. There is some mild epigastric tenderness. There is no rebound or guarding. Abdomen: soft Results - Labs 01/18/17 19:07 01/18/17 19:07 Abnormal Lab Results - Last 24 Hours (Table) 01/18/17 01/18/17 01/18/17 Range/Units 19:07 19:07 20:33 RBC 6.43 H (4.30-5.90) m/uL Hgb 19.2 H (13.0-17.5) gm/dL Hct 59.5 H (39.0-53.0) % RDW 15.8 H (11.5-15.5) % Plt Count 134 L (150-450) k/uL Lymphocytes # 0.9 L (1.0-4.8) k/uL BUN 31 H (9-20) mg/dL Glucose 110 H (74-99) mg/dL AST 82 H (17-59) U/L Ur Specific [place] 1.050 H (1.001-1.035) Urine Protein Trace H (Negative) Urine Ketones Trace H (Negative) Diabetes panel 01/18/17 Range/Units 19:07 Sodium 145 (137-145) mmol/L Potassium 4.3 (3.5-5.1) mmol/L Chloride 104 (98-107) mmol/L Carbon Dioxide 30 (22-30) mmol/L BUN 31 H (9-20) mg/dL Creatinine 0.90 (0.66-1.25) mg/dL Glucose 110 H (74-99) mg/dL Calcium 9.2 (8.4-10.2) mg/dL AST 82 H (17-59) U/L ALT 59 (21-72) U/L Alkaline Phosphatase 116 (38-126) U/L Total Protein 7.0 (6.3-8.2) g/dL Albumin 3.9 (3.5-5.0) g/dL Calcium panel 01/18/17 Range/Units 19:07 Calcium 9.2 (8.4-10.2) mg/dL Albumin 3.9 (3.5-5.0) g/dL Pituitary panel 01/18/17 Range/Units 19:07 Sodium 145 (137-145) mmol/L Potassium 4.3 (3.5-5.1) mmol/L Chloride 104 (98-107) mmol/L Carbon Dioxide 30 (22-30) mmol/L BUN 31 H (9-20) mg/dL Creatinine 0.90 (0.66-1.25) mg/dL Glucose 110 H (74-99) mg/dL Calcium 9.2 (8.4-10.2) mg/dL Adrenal panel 01/18/17 Range/Units 19:07 Sodium 145 (137-145) mmol/L Potassium 4.3 (3.5-5.1) mmol/L Chloride 104 (98-107) mmol/L Carbon Dioxide 30 (22-30) mmol/L BUN 31 H (9-20) mg/dL Creatinine 0.90 (0.66-1.25) mg/dL Glucose 110 H (74-99) mg/dL Calcium 9.2 (8.4-10.2) mg/dL Total Bilirubin 0.8 (0.2-1.3) mg/dL AST 82 H (17-59) U/L ALT 59 (21-72) U/L Alkaline Phosphatase 116 (38-126) U/L Total Protein 7.0 (6.3-8.2) g/dL Albumin 3.9 (3.5-5.0) g/dL - Imaging CT scan - abdomen: report reviewed (And small bowel to the level of the cecum. This is consistent with ileus.) Assessment and Plan Plan: Ileus. Patient received IV fluids. We will give him some sips of clears today. Once his bowel function. We will increase his diet.
[2017-01-19] MEDS: DEXTROSE 5%-0.45% NACL 1,000 ML IV SCH ×3 (15:14→21:16)
[2017-01-19] MEDS: RIVAROXABAN 10 MG TAB PO SCH (18:01)
--- NOTE | 2017-01-19 19:16 | P.HPIM ---
History of Present Illness H&P Date: 01/19/17 Chief Complaint: Abdominal pain This very pleasant 51-year-old male patient of Dr. Ayla Garner, with chronic stable medical conditions that include atrial fibrillation, hyperlipidemia, sleep apnea uses CPAP machine, psoriasis presented to the emergency department with acute abdominal pain worsening over the last 3 days. Pain is localized and does not radiate. Endorses nausea and decreased frequency of bowel movements, denies blood in his stool black or tarry stool. Review of Systems GEN.: [ Tired appearing] EYES: [None] HEENT: [None] NECK: [None] RESPIRATORY: [None] CARDIOVASCULAR: [None] GASTROINTESTINAL: [Epigastric pain, right upper and lower quadrant pain] GENITOURINARY: [None] MUSCULOSKELETAL: [Weakness DERMATOLOGIC: Psoriasis on the elbows] LYMPHATICS: [None] HEMATOLOGICAL: [None] PSYCHIATRY: [None] NEUROLOGICAL: [Weakness] Past Medical History Past Medical History: Atrial Fibrillation, Hyperlipidemia, Musculoskeletal Disorder, Pneumonia, Skin Disorder, Sleep Apnea/CPAP/BIPAP Additional Past Medical History / Comment(s): Dobutamine stress echo 10/2015 - normal, MYTONIC MUSCULAR DYSTROPHY- ANDREEA-USES RESPIRATOR AT NIGHT, BILATERAL LEG PAIN WITH LONG WALKS, PSORIASIS. History of Any Multi-Drug Resistant Organisms: None Reported Past Surgical History: Heart Catheterization Additional Past Surgical History / Comment(s): bilateral cataract removal with lens implants surgery, normal cardiac cath -2013, colonoscopy with 2 benign polyps removed Past Anesthesia/Blood Transfusion Reactions: No Reported Reaction Additional Past Anesthesia/Blood Transfusion Reaction / Comment(s): Pt states due to mytonic muscular dystrophy he is unable to have general or spinal anesthesia. Additional Psychological History / Comment(s): Social HISTORY: lives with mom and brother, uses a cane to walk longer distances. Smoking Status: Former smoker (1 ppd x 14 years) - Past Family History Father Family Medical History: GERD/Reflux Additional Family Medical History / Comment(s): myotonic muscular dystropy, gerd. father is no longer living-he had a cardiac arrest at the age of 67yrs. Mother History Unknown: Yes Family Medical History: Cancer Additional Family Medical History / Comment(s): BREAST CANCER. Mother is 81 yrs old. Medications and Allergies Home Medications Medication Instructions Recorded Confirmed Type Gabapentin 600 mg PO TID 03/01/14 01/18/17 History Rivaroxaban [Xarelto] 20 mg PO AC-SUPPER 01/11/15 01/18/17 History Multivitamins, Thera [Multivitamin 1 tab PO DAILY 11/17/15 01/18/17 History (formulary)] Omeprazole 20 mg PO BID 11/17/15 01/18/17 History Digoxin [Lanoxin] 125 mcg PO DAILY 04/07/16 01/18/17 History Baclofen [Lioresal] 10 mg PO TID PRN 05/07/16 01/18/17 History Polyethylene Glycol 3350 [Miralax] 17 gm PO DAILY PRN 01/18/17 01/18/17 History Allergies Allergy/AdvReac Type Severity Reaction Status Date / Time No Known Allergies Allergy Verified 01/18/17 19:04 Physical Exam Vitals: Vital Signs Temp Pulse Pulse Pulse Resp BP BP 01/19/17 15:00 97.0 F L 78 18 101/67 01/19/17 13:59 86 16 93/63 01/19/17 11:55 16 93/60 01/19/17 11:46 97.4 F L 73 17 88/66 01/19/17 11:35 16 01/19/17 10:18 98.5 F 85 16 90/61 01/19/17 09:41 81 17 97/62 01/19/17 08:04 94 19 97/62 01/19/17 06:24 58 L 16 102/66 01/19/17 01:49 74 16 99/62 01/19/17 01:15 69 16 83/60 01/19/17 00:00 97.9 F 78 16 129/63 01/18/17 22:23 97.2 F L 91 16 91/65 01/18/17 21:21 96.9 F L 89 18 91/65 01/18/17 20:42 91 16 120/73 01/18/17 19:26 90 16 94/70 01/18/17 18:42 98.9 F 60 18 97/58 Pulse Ox 01/19/17 15:00 99 01/19/17 13:59 01/19/17 11:55 97 01/19/17 11:46 97 01/19/17 11:35 01/19/17 10:18 97 01/19/17 09:41 98 01/19/17 08:04 96 01/19/17 06:24 98 01/19/17 01:49 100 01/19/17 01:15 95 01/19/17 00:00 98 01/18/17 22:23 97 01/18/17 21:21 97 01/18/17 20:42 95 01/18/17 19:26 99 01/18/17 18:42 98 Intake and Output 01/19/17 01/19/17 01/19/17 06:59 14:59 22:59 Intake Total 800 Balance 800 Intake: IV 800 Dextrose 5%-0.45% NaCl 1, 800 000 ml @ 20 mls/hr IV . Q24H [facility] Rx#:[id number] Other: Voiding Method Toilet VITAL SIGNS: [Vital signs temp temperature 97.4, pulse 73, respiratory rate 17, blood pressure 93/60, oxygen saturation 97% on 2 L.. BMI 24.3 kg/m] GENERAL: [Average built, sitting up, comfortable]. EYES: [Pupils equal. Conjunctiva zak]l. HEENT: [External appearance of nose and ears normal, oral cavity grossly normal] . NECK: [JVD not raised; masses not palpable]. HEART: [First and second heart sounds are normal; no edema]. LUNGS:[ Respiratory rate normal; clear to auscultation]. ABDOMEN: [Soft, nontender, liver spleen not palpable, no masses palpable]. LYMPHATICS: [No lymph nodes palpable in the axilla and neck]. PSYCH: [Alert and oriented x3; mood and affect zak]l. NEUROLOGICAL: [Cranial nerves grossly intact; no facial asymmetry, power and sensation grossly intact]. Results CBC & Chem 7: 01/18/17 19:07 01/18/17 19:07 Labs: Abnormal Lab Results - Last 24 Hours (Table) 01/18/17 01/18/17 01/18/17 Range/Units 19:07 19:07 20:33 RBC 6.43 H (4.30-5.90) m/uL Hgb 19.2 H (13.0-17.5) gm/dL Hct 59.5 H (39.0-53.0) % RDW 15.8 H (11.5-15.5) % Plt Count 134 L (150-450) k/uL Lymphocytes # 0.9 L (1.0-4.8) k/uL BUN 31 H (9-20) mg/dL Glucose 110 H (74-99) mg/dL AST 82 H (17-59) U/L Ur Specific [place] 1.050 H (1.001-1.035) Urine Protein Trace H (Negative) Urine Ketones Trace H (Negative) Thrombosis Risk Factor Assmnt - Choose All That Apply Any of the Below Risk Factors Present?: Yes Each Factor Represents 1 point: Age 41-60 years Other Risk Factors: No Other congenital or acquired thrombophilia - If yes, enter type in comment: No Thrombosis Risk Factor Assessment Total Risk Factor Score: 1 Thrombosis Risk Factor Assessment Level: Low Risk Assessment and Plan Plan: ASSESSMENT: -Ileus in a patient with abdominal pain and decreased bowel movements for past 3 days -Persistent atrial fibrillation, chronically on Xarelto. -Myotonic muscular dystrophy, familial. -Chronic respiratory failure, uses oxygen at night. -Chronic psoriasis. -Obstructive sleep apnea uses a CPAP machine. PLAN: Home medications reordered, Gen. surgery consulted, IV fluids initiated. Maintain diet of nothing by mouth plan of care discussed with the patient at the bedside he is in agreement. We'll follow closely. CATERER HELPER STATEMENT: Patient was seen and examined by nurse practitioner Madeleine Munoz and all elements of the case discussed with attending Dr. Espino
--- NOTE | 2017-01-19 22:36 | HP ---
HISTORY AND PHYSICAL DATE OF ADMISSION: 01/18/2017 PRESENT COMPLAINT: Abdominal pain. ATTENDING NOTE: This patient seen examined by me. I discussed with my nurse practitioner, Ms. Munoz. I came to see this patient twice this afternoon. Both the times, he was in the restroom. Patient presents with 3 days of nausea, vomiting, multiple diarrhea, abdominal pain, more diffuse. He had up to 7 loose stools today. Denies any fever. EXAMINATION: Temperature 97, pulse 78, respirations 18, blood pressure 101/67, pulse 99% on room air. LUNGS: Fair air entry. CARDIOVASCULAR: First and second sounds normal. ABDOMEN: Diffuse tenderness. No guarding or rigidity. Bowel sounds are present. PSYCH: Alert and oriented x3. Mood and affect were normal. SOCIAL HISTORY: Patient lives with mother and 2 brothers. He smoked a pack a day for 14 years, stopped in 2002. INVESTIGATIONS: White count 6.2. Potassium 4.3. CT abdomen showing some ileus. ASSESSMENT: 1. Possibly acute colitis manifesting in nausea, vomiting, diarrhea with associated ileus. I do not think not think this is a primary mechanical obstruction. 2. Persistent atrial fibrillation, chronically on Xarelto. 3. Myotonic familial dystrophy. 4. Chronic hypoxic respiratory failure on nocturnal oxygen at home. 5. Chronic psoriasis. 6. Obstructive sleep apnea. Uses a continuous positive airway pressure machine. 7. Hyperlipidemia. PLAN: Patient is n.p.o. on oral medications. Surgery was consulted. Will repeat a plain abdominal film, put the patient empirically on Cipro and Flagyl, send a stool for ova and parasites. MMODL / IJN: [id number] /
--- NOTE | 2017-01-19 22:53 | XR ---
EXAMINATION TYPE: XR abdomen complete w decub DATE OF EXAM: 01/19/2017 COMPARISON: 11/08/2014 HISTORY: Abdominal pain TECHNIQUE: Supine, upright, and left side down lateral decubitus views of the abdomen are obtained. FINDINGS: 4 views were obtained that show no sign of intestinal obstruction or pneumoperitoneum. Fecal pattern is normal. There is no sign of a mass. There is interposition of the hepatic flexure of the colon whi ch is a normal variant. There are no pathologic calcifications over the kidneys. IMPRESSION: Nonacute abdomen. No adverse change compared to old exam.
[2017-01-20] MEDS: DEXTROSE 5%-0.45% NACL 1,000 ML IV SCH ×3 (04:07→20:50)
[2017-01-20] MEDS: DIGOXIN 250 MCG/ML 2 ML AMP IVP SCH (09:34)
[2017-01-20] MEDS: PANTOPRAZOLE 40 MG/10 ML VIAL IV SCH (09:34)
[2017-01-20] MEDS: GABAPENTIN 300 MG CAP PO SCH ×3 (09:35→20:50)
[2017-01-20 10:13] LABS: Anion Gap 7 mmol/L; Blood Urea Nitrogen 9 mg/dL (9-20); Calcium 7.7 mg/dL (8.4-10.2); Carbon Dioxide 25 mmol/L (22-30); Chloride 112 mmol/L (98-107); Glucose 110 mg/dL (74-99); Non-African American GFR(MDRD) >60 (>60 ml/min/1.73 sqM); Potassium 3.9 mmol/L (3.5-5.1); Sodium 144 mmol/L (137-145)
[2017-01-20] MEDS ORDERED: MORPHINE SULFATE 2 MG/ML SYRINGE IV PRN (14:52)
--- NOTE | 2017-01-20 14:59 | P.PN ---
Subjective 51-year-old being seen on rounds this morning. Patient states he has had a total of 5 loose stools since midnight. Stool for C. diff was negative. Patient states he continues to have abdominal pain slowly improving there is mild epigastric tenderness no rebound no guarding nausea sensation has improved there's been no episodes of any emesis patient remains nothing by mouth with IV fluid noted patient is on Xarelto has history of atrial fibrillation as evident on a 12-lead EKG this admission Objective - Vital Signs Vital signs: Vital Signs Temp 97.3 F L 01/20/17 14:16 Pulse 81 01/20/17 14:16 Resp 20 01/20/17 14:16 BP 89/59 01/20/17 14:16 Pulse Ox 96 01/20/17 14:16 Intake & Output 01/19/17 01/20/17 01/20/17 18:59 06:59 18:59 Intake Total 800 Balance 800 Intake: IV 800 Dextrose 5%-0.45% NaCl 1, 800 000 ml @ 125 mls/hr IV . Q8H [facility] Rx#:[id number] Other: Voiding Method Toilet Toilet Bedside Commode # Voids 3 5 # Bowel Movements 1 1 - Exam Physical exam Pleasant 51-year-old gentleman sitting up in bed does not appear in acute distress Lungs essentially clear adequate air movement on room air Heart S1-S2 audible irregular abdomen slight mid epigastric tenderness no facial grimacing with palpitation to the abdominal wall states sensation of nausea no active emesis states has had 5 loose stools since midnight not distended Extremities no edema noted - Labs CBC & Chem 7: 01/18/17 19:07 01/20/17 08:46 Labs: Abnormal Lab Results - Last 24 Hours (Table) 01/20/17 Range/Units 08:46 Chloride 112 H (98-107) mmol/L Glucose 110 H (74-99) mg/dL Calcium 7.7 L (8.4-10.2) mg/dL Assessment and Plan Plan: Impression Present on admission mid epigastric pain with nausea vomiting CAT scan abdomen pelvis consistent with an ileus Chronic atrial fibrillation on Xarelto History of muscle skeletal disorder History of sleep apnea using CPAP therapy History of mytonic muscular dystrophy Plan IV fluid as ordered Anti-emetics as ordered Keep nothing by mouth except for ice chips once bowel function returns will increase his diet Pain control Continue DVT and GI prophylaxis continue to follow surgical course closely addressing surgical issues as they arise The above impression and plan of care have been discussed and directed by signing physician. Patti Simms nurse practitioner acting as scribe for signing physician.
--- NOTE | 2017-01-20 17:02 | P.PN ---
Progress Note - Text DATE OF SERVICE: 01/20/2017 PRESENTING COMPLAINT: Abdominal pain HISTORY OF PRESENT ILLNESS: 51-year-old male presented with 3 days of nausea vomiting multiple diarrhea of abdominal pain more diffuse. Had upwards of 7 loose stools daily. Afebrile. INTERVAL HISTORY: 01/20/2017: Patient lying in bed appears comfortable yet tired looking. Complains of diffuse abdominal pain and continues to have multiple diarrheas he's had about 5 today. REVIEW OF SYSTEMS: Done for constitutional ,cardiovascular, GI, pulmonary with relevant findings as above. CURRENT MEDICATIONS Baclofen, Lanoxin, Neurontin, Zofran, Protonix, MiraLAX, Xarelto, Ultram, PHYSICAL EXAM VITAL SIGNS: Temp temperature 96.9, pulse 71, respiratory rate 16, blood pressure 91/64, oxygen saturation 96% on 2 L. GENERAL APPEARANCE: Lying in bed, tired appearing, pale. EYES: Pupils equal. Conjunctiva normal. NECK: JVD not raised. Mass not palpable. RESPIRATORY: Respiratory effort normal. Fair air entry. CARDIOVASCULAR: First and second sounds normal. No edema. ABDOMEN: Soft. Liver and spleen not palpable. Diffuse tenderness, no guarding or rigidity. No mass palpable. PSYCHIATRY: Alert and oriented x3. Mood and affect normal. INVESTIGATIONS: Chloride 112 Abdominal x-ray: Nonacute abdomen CT of the abdomen: Some ileus ASSESSMENT: -Acute gastroenteritis with associated ileus, unlikely a primary mechanical obstruction. -Persistent atrial fibrillation, chronically on Xarelto. -Myotonic familial dystrophy. -Chronic hypoxic respiratory failure on nocturnal oxygen at home. -Chronic psoriasis. -Chronic obstructive sleep apnea, uses positive airway pressure machine. -Hyperlipidemia. PLAN: Maintain nothing by mouth status with ice chips and popsicles, surgery consulted recommend antiemetics and remains on Cipro and Flagyl stool studies sent. Plan of care discussed with the patient the bedside he is in agreement. We'll follow HAND PLEATER statement: Patient was seen and examined by nurse practitioner Madeleine Munoz and all elements of the case discussed with attending Dr. Espino
[2017-01-20] MEDS: RIVAROXABAN 10 MG TAB PO SCH (17:52)
--- NOTE | 2017-01-20 20:00 | PN ---
PROGRESS NOTE DATE OF SERVICE: 01/20/2017. PRESENTING COMPLAINT: Acute diarrhea. ATTENDING NOTE: This patient seen and examined by me. I discussed with nurse practitioner Ms. Munoz. Patient admitted with acute severe diarrhea with some element of ileus primarily being this could be more acute gastroenteritis, also had some abdominal pain. Still having diarrhea. No fever. No white count. This could be a low-grade colitis. EXAMINATION: On examination, abdomen mild diffuse tenderness. Bowel sounds are present. Potassium 3.9. BUN and creatinine are normal. ASSESSMENT: Acute severe diarrhea. C diff is ruled out. Could be low-grade colitis/acute gastroenteritis. Ova and parasites pending. PLAN: Patient's IV Protonix will be discontinued. Use Lomotil. Add for bulk forming. Diet will be advanced. Will get a GI opinion. Also Lomotil schedule is being added. See how patient does. MMODL / IJN: [id number] /
[2017-01-20] MEDS: DIPHENOX-ATROP 2.5-0.025 MG 1 EACH TAB PO SCH (20:50)
[2017-01-20] MEDS: PSYLLIUM HUSK 100% 6 GM PACKET PO SCH (21:02)
[2017-01-21] MEDS: DIPHENOX-ATROP 2.5-0.025 MG 1 EACH TAB PO SCH ×4 (00:24→22:13)
[2017-01-21] MEDS: DEXTROSE 5%-0.45% NACL 1,000 ML IV SCH ×3 (06:08→22:13)
[2017-01-21] MEDS: DIGOXIN 125 MCG TAB PO SCH (09:00)
[2017-01-21] MEDS: GABAPENTIN 300 MG CAP PO SCH ×3 (09:00→22:14)
[2017-01-21] MEDS: PSYLLIUM HUSK 100% 6 GM PACKET PO SCH ×2 (09:03→22:13)
[2017-01-21 10:11] LABS: Anion Gap 8 mmol/L; Blood Urea Nitrogen 5 mg/dL (9-20); Calcium 8.7 mg/dL (8.4-10.2); Carbon Dioxide 32 mmol/L (22-30); Chloride 107 mmol/L (98-107); Glucose 103 mg/dL (74-99); Non-African American GFR(MDRD) >60 (>60 ml/min/1.73 sqM); Potassium 4.2 mmol/L (3.5-5.1); Sodium 147 mmol/L (137-145)
--- NOTE | 2017-01-21 11:14 | P.CONS ---
History of Present Illness - Reason for Consult Consult date: 01/21/17 Diarrhea Requesting physician: Johann Espino - History of Present Illness 51-year-old gentleman history of atrial fibrillation Xarelto maintennce, myotonic muscular dystrophy, admitted with abdominal pain 1 week with diarrhea , nausea vomiting. Denies hematemesis hematochezia melena. Clostridium difficile negative. Afebrile. CT abdomen and pelvis for a dilated small bowel loops down to the cecum no obstructing lesion. Small bowel ileus. Laboratory studies 01/18 White count 6.2. Hemoglobin 19.2. Platelet 134. Sodium 145. BUN 31. Creatinine 0.9. Potassium 4.3. Passing 3-4 loose nonbloody bowel movements about a week ago but over the last few days it has improved one to 2 stools daily. Tolerating full liquid diet. Last colonoscopy to his memory 18 months ago and normal. Review of Systems Constitutional: Denies fever, chills, sweats, weight gain, or loss. HEENT: Negative for migraines, blurred vision or loss, earaches, drainage, tinnitus, oral mucosal lesions, dysphagia, or odynophagia. Cardiac: Atrial fibrillation. Hyperlipidemia. Negative for chest pain, arrhythmias, or palpitation. Respiratory: Sleep apnea. Negative for shortness of breath, hemoptysis, cough, or sputum production. Gastrointestinal: See HPI for pertinent findings. Genitourinary: Negative for hematuria, urgency, frequency, polyuria, dysuria, or penile discharge. Musculoskeletal: Myotonic muscular dystrophy. Negative for muscle aches, swelling, arthritis, and arthralgias. Neurologic: Negative for stroke or TIA. Endocrine: Negative for thyroid problems. Skin: Negative for rash or itching. Psychiatric: Negative history for depression and anxiety All systems: negative (See HPI) Past Medical History Past Medical History: Atrial Fibrillation, Hyperlipidemia, Musculoskeletal Disorder, Pneumonia, Skin Disorder, Sleep Apnea/CPAP/BIPAP Additional Past Medical History / Comment(s): Dobutamine stress echo 10/2015 - normal, MYTONIC MUSCULAR DYSTROPHY- ANDREEA-USES RESPIRATOR AT NIGHT, BILATERAL LEG PAIN WITH LONG WALKS, PSORIASIS. History of Any Multi-Drug Resistant Organisms: None Reported Past Surgical History: Heart Catheterization Additional Past Surgical History / Comment(s): bilateral cataract removal with lens implants surgery, normal cardiac cath -2013, colonoscopy with 2 benign polyps removed Past Anesthesia/Blood Transfusion Reactions: No Reported Reaction Additional Past Anesthesia/Blood Transfusion Reaction / Comm: Pt states due to mytonic muscular dystrophy he is unable to have general or spinal anesthesia. Additional Psychological History / Comment(s): Social HISTORY: lives with mom and brother, uses a cane to walk longer distances. Smoking Status: Former smoker (1 ppd x 14 years) - Past Family History Father Family Medical History: GERD/Reflux Additional Family Medical History / Comment(s): myotonic muscular dystropy, gerd. father is no longer living-he had a cardiac arrest at the age of 67yrs. Mother History Unknown: Yes Family Medical History: Cancer Additional Family Medical History / Comment(s): BREAST CANCER. Mother is 81 yrs old. Medications and Allergies Home Medications Medication Instructions Recorded Confirmed Type Gabapentin 600 mg PO TID 03/01/14 01/18/17 History Rivaroxaban [Xarelto] 20 mg PO AC-SUPPER 01/11/15 01/18/17 History Multivitamins, Thera [Multivitamin 1 tab PO DAILY 11/17/15 01/18/17 History (formulary)] Omeprazole 20 mg PO BID 11/17/15 01/18/17 History Digoxin [Lanoxin] 125 mcg PO DAILY 04/07/16 01/18/17 History Baclofen [Lioresal] 10 mg PO TID PRN 05/07/16 01/18/17 History Polyethylene Glycol 3350 [Miralax] 17 gm PO DAILY PRN 01/18/17 01/18/17 History Allergies Allergy/AdvReac Type Severity Reaction Status Date / Time No Known Allergies Allergy Verified 01/18/17 19:04 Physical Exam Vitals: Vital Signs Temp Pulse Resp BP Pulse Ox 01/21/17 07:00 97.4 F L 85 16 79/52 97 01/21/17 00:00 74 01/20/17 23:00 97.4 F L 74 16 105/69 95 01/20/17 14:16 97.3 F L 81 20 89/59 96 Intake and Output 01/20/17 01/21/17 01/21/17 22:59 06:59 14:59 Other: # Voids 2 3 # Bowel Movements 3 2 General appearance: The patient is alert, oriented, in no acute distress. HET: Head is normocephalic and atraumatic. Pupils are equal and reactive. Oropharynx is clear without lesions. Neck: Supple without lymphadenopathy. Trachea midline. Heart: S1 S2. Regular rate and rhythm. Lungs: No crackles or wheezes are heard. Abdomen: Soft, nontender, nondistended with bowel sounds. No peritoneal signs. No palpable organomegaly or masses. Extremities: Normal skin color and turgor. No cyanosis, rash, ulceration, clubbing, or edema. Radial and pedal pulses are 2/4 bilaterally. Neurological: No focal deficits. Strength and sensation are grossly intact. Results CBC & Chem 7: 01/18/17 19:07 01/21/17 08:38 Labs: Abnormal Lab Results - Last 24 Hours (Table) 01/20/17 Range/Units 08:46 Chloride 112 H (98-107) mmol/L Glucose 110 H (74-99) mg/dL Calcium 7.7 L (8.4-10.2) mg/dL CT scan - abdomen: report reviewed (Dr. Salinas) Assessment and Plan (1) Diarrhea Narrative/Plan: Suspect gastric enteritis ileus with slow clinical improvement possible self limiting infectious possible inflammatory colitis enteritis Status: Acute Plan: 1. Antidiarrheals as needed. Slow advancement of diet. Endoscopic exams not planned at this time. Thank you for this kind referral and the opportunity to participate in the care of your patient. This consultation was discussed with Dr. Salinas. The impression and plan of care have been directed as dictated.
--- NOTE | 2017-01-21 12:24 | P.PN ---
Subjective Pleasant 51-year-old being seen on rounds this morning patient states there is less abdominal pain "almost gone" states the past 24 hours only had 1-2 stools. Reports no nausea vomiting reports tolerating diet full liquids patient has been seen by GI services recommendations reviewed noted and appreciated. There is no plan for endoscopic exams at this time they are recommending antidiarrhea as needed and slowly advance the diet is afebrile electrolytes within normal limits Objective - Vital Signs Vital signs: Vital Signs Temp 97.4 F L 01/21/17 07:00 Pulse 85 01/21/17 07:00 Resp 16 01/21/17 07:00 BP 79/52 01/21/17 07:00 Pulse Ox 97 01/21/17 07:00 Intake & Output 01/20/17 01/21/17 01/21/17 18:59 06:59 18:59 Intake Total 200 Balance 200 Intake: Oral 200 Other: # Voids 1 3 # Bowel Movements 1 2 - Exam Physical exam Devon 51-year-old gentleman sitting up in bed does not appear in acute distress states has been up to the bathroom and back states there is a noted improvement in the abdominal pain Lungs essentially clear adequate air movement on room air Heart S1-S2 audible irregular abdomen slight mid epigastric tenderness no facial grimacing with palpitation to the abdominal wall no reports of nausea vomiting urinating no difficulty states no stool this morning reports abdominal discomfort significantly improved since admission Extremities no edema noted - Labs CBC & Chem 7: 01/18/17 19:07 01/21/17 08:38 Labs: Abnormal Lab Results - Last 24 Hours (Table) 01/21/17 Range/Units 08:38 Sodium 147 H (137-145) mmol/L Carbon Dioxide 32 H (22-30) mmol/L BUN 5 L (9-20) mg/dL Glucose 103 H (74-99) mg/dL Assessment and Plan Plan: Impression Present on admission mid epigastric pain with nausea vomiting CAT scan abdomen pelvis consistent with an ileus Chronic atrial fibrillation on Xarelto History of muscle skeletal disorder History of sleep apnea using CPAP therapy History of mytonic muscular dystrophy Present on admission abdominal pain Suspect gastric enteritis ileus slowly improving Plan IV fluid as ordered Anti-emetics as ordered Slowly advanced diet monitor the response Per GI service no plan for endoscopic at this time Pain control Continue DVT and GI prophylaxis continue to follow surgical course closely addressing surgical issues as they arise No surgical intervention planned at this time Agree with conservative management The above impression and plan of care have been discussed and directed by signing physician. Patti Simms nurse practitioner acting as scribe for signing physician. Time with Patient: Greater than 30
--- NOTE | 2017-01-21 13:32 | P.PN ---
Subjective 51-year-old admitted for gastroenteritis and the possible ileus both of which are improving at this point of time. And patient the is clinically doing well will not advance her diet and possibly of discharge tomorrow. Patient denied any abdominal pain denied any nausea vomiting denied any fevers chills. Objective - Vital Signs Vital signs: Vital Signs Temp 97.4 F L 01/21/17 07:00 Pulse 85 01/21/17 07:00 Resp 16 01/21/17 07:00 BP 79/52 01/21/17 07:00 Pulse Ox 97 01/21/17 07:00 Intake & Output 01/20/17 01/21/17 01/21/17 18:59 06:59 18:59 Intake Total 200 Balance 200 Intake: Oral 200 Other: # Voids 1 3 # Bowel Movements 1 2 - Exam PHYSICAL EXAMINATION: GENERAL: The patient is alert and oriented x3, not in any acute distress. Well developed, well nourished. HEENT: Pupils are round and equally reacting to light. EOMI. No scleral icterus. No conjunctival pallor. Normocephalic, atraumatic. No pharyngeal erythema. No thyromegaly. CARDIOVASCULAR: S1 and S2 present. No murmurs, rubs, or gallops. PULMONARY: Chest is clear to auscultation, no wheezing or crackles. ABDOMEN: Soft, nontender, nondistended, normoactive bowel sounds. No palpable organomegaly. MUSCULOSKELETAL: No joint swelling or deformity. EXTREMITIES: No cyanosis, clubbing, or pedal edema. NEUROLOGICAL: Gross neurological examination did not reveal any focal deficits. SKIN: No rashes. - Labs CBC & Chem 7: 01/18/17 19:07 01/21/17 08:38 Labs: Abnormal Lab Results - Last 24 Hours (Table) 01/21/17 Range/Units 08:38 Sodium 147 H (137-145) mmol/L Carbon Dioxide 32 H (22-30) mmol/L BUN 5 L (9-20) mg/dL Glucose 103 H (74-99) mg/dL Assessment and Plan Plan: -Acute gastroenteritis with associated ileus, unlikely a primary mechanical obstruction. -Persistent atrial fibrillation, chronically on Xarelto. -Myotonic familial dystrophy. -Chronic hypoxic respiratory failure on nocturnal oxygen at home. -Chronic psoriasis. -Chronic obstructive sleep apnea, uses positive airway pressure machine. -Hyperlipidemia Advance her diet today possibly of discharge tomorrow
[2017-01-21] MEDS: RIVAROXABAN 10 MG TAB PO SCH (17:46)
[2017-01-22 00:54] VITALS: RESP 16
[2017-01-22] MEDS: DEXTROSE 5%-0.45% NACL 1,000 ML IV SCH ×2 (06:12→12:11)
[2017-01-22] MEDS: PSYLLIUM HUSK 100% 6 GM PACKET PO SCH (07:59)
[2017-01-22] MEDS: DIPHENOX-ATROP 2.5-0.025 MG 1 EACH TAB PO SCH (07:59)
[2017-01-22] MEDS: GABAPENTIN 300 MG CAP PO SCH (07:59)
[2017-01-22] MEDS: DIGOXIN 125 MCG TAB PO SCH (08:05)
[2017-01-22 08:08] VITALS: BP 94/60; PULSE 79; TEMP 97.2
[2017-01-22 09:54] LABS: Anion Gap 4 mmol/L; Blood Urea Nitrogen 12 mg/dL (9-20); Calcium 8.5 mg/dL (8.4-10.2); Carbon Dioxide 34 mmol/L (22-30); Chloride 105 mmol/L (98-107); Glucose 89 mg/dL (74-99); Non-African American GFR(MDRD) >60 (>60 ml/min/1.73 sqM); Potassium 4.4 mmol/L (3.5-5.1); Sodium 143 mmol/L (137-145)
--- NOTE | 2017-01-22 11:41 | P.DS ---
Providers Date of admission: 01/18/17 20:50 Attending physician: Johann Espino Consults: 01/18/17 20:49 Consult Physician Routine Consulting Provider: Raoul Cárdenas Consult Reason/Comments: ileus, early SBO Do you want consulting provider notified?: Yes 01/20/17 19:30 Consult Physician Routine Consulting Provider: Rosa Haynes Consult Reason/Comments: diarrhea Do you want consulting provider notified?: Yes Primary care physician: Ayla Garner Hospital Course: 51-year-old admitted for gastroenteritis and the possible ileus both of which are improving at this point of time. Patient did have a good bowel movement yesterday patient is clinically doing well will be discharged today. Patient denied any abdominal pain denied any nausea vomiting denied any fevers chills. PHYSICAL EXAMINATION: GENERAL: The patient is alert and oriented x3, not in any acute distress. Well developed, well nourished. HEENT: Pupils are round and equally reacting to light. EOMI. No scleral icterus. No conjunctival pallor. Normocephalic, atraumatic. No pharyngeal erythema. No thyromegaly. CARDIOVASCULAR: S1 and S2 present. No murmurs, rubs, or gallops. PULMONARY: Chest is clear to auscultation, no wheezing or crackles. ABDOMEN: Soft, nontender, nondistended, normoactive bowel sounds. No palpable organomegaly. MUSCULOSKELETAL: No joint swelling or deformity. EXTREMITIES: No cyanosis, clubbing, or pedal edema. NEUROLOGICAL: Gross neurological examination did not reveal any focal deficits. SKIN: No rashes. -Acute gastroenteritis with associated ileus, no primary mechanical obstruction. -Persistent atrial fibrillation, chronically on Xarelto. -Myotonic dystrophy. -Chronic hypoxic respiratory failure on nocturnal oxygen at home. -Chronic psoriasis. -Chronic obstructive sleep apnea, uses positive airway pressure machine. -Hyperlipidemia Patient Condition at Discharge: Fair Plan - Discharge Summary New Discharge Prescriptions: No Action Gabapentin 600 mg PO TID Rivaroxaban [Xarelto] 20 mg PO AC-SUPPER Multivitamins, Thera [Multivitamin (formulary)] 1 tab PO DAILY Omeprazole 20 mg PO BID Digoxin [Lanoxin] 125 mcg PO DAILY Baclofen [Lioresal] 10 mg PO TID PRN PRN Reason: Muscle Spasm Polyethylene Glycol 3350 [Miralax] 17 gm PO DAILY PRN PRN Reason: Constipation Discharge Medication List Gabapentin 600 mg PO TID 03/01/14 [History] Rivaroxaban [Xarelto] 20 mg PO AC-SUPPER 01/11/15 [History] Multivitamins, Thera [Multivitamin (formulary)] 1 tab PO DAILY 11/17/15 [History ] Omeprazole 20 mg PO BID 11/17/15 [History] Digoxin [Lanoxin] 125 mcg PO DAILY 04/07/16 [History] Baclofen [Lioresal] 10 mg PO TID PRN 05/07/16 [History] Polyethylene Glycol 3350 [Miralax] 17 gm PO DAILY PRN 01/18/17 [History] Follow up Appointment(s)/Referral(s): Ayla Garner MD [Primary Care Provider] - 3 Days Raoul Cárdenas MD [STAFF PHYSICIAN] - 1 Week Patient Instructions/Handouts: Ileus (DC) Activity/Diet/Wound Care/Special Instructions: No smoking, cessation information provided. Regular diet. Discharge Disposition: HOME SELF-CARE
[2017-01-26 16:23] LABS: Cryptosporidium parvum Not detected (Not detected); Isospora belli Not detected (Not detected); Microsporidium Not detected (Not detected); Routine Ova and Parasites Not detected
== END 2017-01-22 14:22 | disposition home or self-care (01) | DRG 389 ==
LOC: EC 17:00 → 5MS5E 20:50 → 4MS4W 01-19 13:59
PROVIDERS: ADMIT Hospitalist; ATTEND Hospitalist
DX: K56.7 Ileus, unspecified (principal); I48.1 Persistent atrial fibrillation; J96.11 Chronic respiratory failure with hypoxia; G71.11 Myotonic muscular dystrophy; K52.9 Noninfective gastroenteritis and colitis, unspecified; L40.9 Psoriasis, unspecified; G47.33 Obstructive sleep apnea (adult) (pediatric); Z99.81 Dependence on supplemental oxygen; E78.5 Hyperlipidemia, unspecified; Z79.01 Long term (current) use of anticoagulants; Z79.899 Other long term (current) drug therapy; Z98.41 Cataract extraction status, right eye; Z98.42 Cataract extraction status, left eye; Z96.1 Presence of intraocular lens; Z87.891 Personal history of nicotine dependence
CPT/HCPCS: 36415; 74020; 74177; 80048; 80053; 81003; 82150; 83690; 84484; 85025; 87177; 87207; 87209; 87324; 93005; 96361; 96374; 96375; 99285

== ENCOUNTER 2017-05-03 00:41 | Emergency (ER) | payer MEDICARE, OTHER ==
[2017-05-03] MEDS ORDERED: SODIUM CHLORIDE 0.9% 500 ML IV STA (01:03)
[2017-05-03] MEDS ORDERED: ACETAMINOPHEN TAB 325 MG TAB PO STA (01:03)
--- NOTE | 2017-05-03 01:40 | CT ---
EXAM: CT Head Without Intravenous Contrast CLINICAL HISTORY: Reason: pain TECHNIQUE: Axial computed tomography images of the head/brain without intravenous contrast. CTDI is 57.40 mGy and DLP is 1029.90 mGy-cm. This CT exam was performed using one or more of the following dose reduction techniques: automated exposure control, adjustment of the mA and/or kV according to patient size, and/or use of iterative reconstruction technique. COMPARISON: No relevant prior studies available. FINDINGS: Brain: Unremarkable. No hemorrhage. No significant white matter disease. No edema. Ventricles: Unremarkable. No ventriculomegaly. Bones/joints: Unremarkable. No acute fracture. Soft tissues: Unremarkable. Sinuses: Minimal mucosal disease right maxillary sinus. Ethmoid air cell opacification. Mastoid air cells: Unremarkable as visualized. No mastoid effusion. IMPRESSION: No acute intracranial process. Paranasal sinus mucosal disease as detailed above. EXAM: CT Cervical Spine Without Intravenous Contrast CLINICAL HISTORY: Reason: pain TECHNIQUE: Axial computed tomography images of the cervical spine without intravenous contrast. CTDI is 14.20 mGy and DLP is 308.20 mGy-cm. This CT exam was performed using one or more of the following dose reduction techniques: automated exposure control, adjustment of the mA and/or kV according to patient size, and/or use of iterative reconstruction technique. Coronal and sagittal reformatted images were created and reviewed. COMPARISON: No relevant prior studies available. FINDINGS: Vertebrae: There is mild reversal of the normal cervical lordosis which is presumed related to positioning or muscle spasm. No acute fracture. Discs/spinal canal/neural foramina: No acute findings. No spinal canal stenosis. Soft tissues: Unremarkable. Lung apices: Unremarkable as visualized. IMPRESSION: No acute findings.
--- NOTE | 2017-05-03 01:44 | XR ---
EXAM: XR Chest, 2 Views CLINICAL HISTORY: Reason: fever TECHNIQUE: Frontal and lateral views of the chest. COMPARISON: 04/07/2016 FINDINGS: Lungs: Stable diminished lung volumes noted. Subsegmental changes at the right base with elevation the right hemidiaphragm are similar to previous exam. The cardiac silhouette is within normal limits. The pulmonary vascular is normal. Pleural space: Questionable pleural calcification noted overlying the left hemidiaphragm. No pneumothorax. Heart: See above. Mediastinum: Unremarkable. Bones/joints: Unremarkable. IMPRESSION: No significant alteration from previous examination with diminished lung volumes and stable subsegmental atelectasis or scarring at the right base.
[2017-05-03 01:48] VITALS: RESP 20
--- NOTE | 2017-05-03 01:49 | ED ---
General Adult HPI - General Chief complaint: Head Injury Stated complaint: Fall Time Seen by Provider: 05/03/17 00:50 Source: patient, EMS, RN notes reviewed Mode of arrival: EMS Limitations: no limitations - History of Present Illness Initial comments: This a 51-year-old male presents emergency Department chief complaint fall, head injury. Patient states is getting occasionally dizzy states he fell and hit his head. Patient states that he has pain at the bridge of his hadn't minimal neck pain. Patient is concerned has he takes Xarelto for A. fib. Patient states that he has been dizzy over the last few days after starting antibiotics for possible spider bite, infection to his right leg region. He states that is improving. He denies current chest pain, shortness of breath from his baseline, known fever or chills. Patient is found to have a fever here in emergency department. He states he has slight cough. Denies nausea vomiting diarrhea constipation. - Related Data Home Medications Medication Instructions Recorded Confirmed Gabapentin 600 mg PO TID 03/01/14 05/03/17 Rivaroxaban [Xarelto] 20 mg PO AC-SUPPER 01/11/15 05/03/17 Multivitamins, Thera [Multivitamin 1 tab PO DAILY 11/17/15 05/03/17 (formulary)] Omeprazole 20 mg PO BID 11/17/15 05/03/17 Digoxin [Lanoxin] 125 mcg PO DAILY 04/07/16 05/03/17 Baclofen [Lioresal] 10 mg PO TID PRN 05/07/16 05/03/17 Polyethylene Glycol 3350 [Miralax] 17 gm PO DAILY PRN 01/18/17 05/03/17 Previous Rx's Medication Instructions Recorded Oseltamivir [Tamiflu] 75 mg PO Q12HR #10 cap 05/03/17 Allergies Allergy/AdvReac Type Severity Reaction Status Date / Time No Known Allergies Allergy Verified 05/03/17 00:51 Review of Systems ROS Statement: Those systems with pertinent positive or pertinent negative responses have been documented in the HPI. ROS Other: All systems not noted in ROS Statement are negative. 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 History of Any Multi-Drug Resistant Organisms: None Reported Past Surgical History: Heart Catheterization Additional Past Surgical History / Comment(s): bilateral cataract removal with lens implants surgery, normal cardiac cath -2013, colonoscopy with 2 benign polyps removed Past Anesthesia/Blood Transfusion Reactions: No Reported Reaction Additional Past Anesthesia/Blood Transfusion Reaction / Comment(s): Pt states due to mytonic muscular dystrophy he is unable to have general or spinal anesthesia. Past Psychological History: No Psychological Hx Reported Smoking Status: Former smoker Past Alcohol Use History: None Reported Past Drug Use History: None Reported - Past Family History Father Family Medical History: GERD/Reflux Additional Family Medical History / Comment(s): myotonic muscular dystropy, gerd. father is no longer living-he had a cardiac arrest at the age of 67yrs. Mother History Unknown: Yes Family Medical History: Cancer Additional Family Medical History / Comment(s): BREAST CANCER. Mother is 81 yrs old. General Exam Limitations: no limitations General appearance: alert, in no apparent distress Head exam: Present: atraumatic, normocephalic, normal inspection Eye exam: Present: normal appearance, PERRL, EOMI. Absent: scleral icterus, conjunctival injection, periorbital swelling ENT exam: Present: normal exam, normal oropharynx, mucous membranes moist, TM's normal bilaterally, normal external ear exam Neck exam: Present: normal inspection. Absent: tenderness, meningismus, full ROM (Patient in c-collar), lymphadenopathy Respiratory exam: Present: normal lung sounds bilaterally. Absent: respiratory distress, wheezes, rales, rhonchi, stridor Cardiovascular Exam: Present: tachycardia, irregular rhythm, normal heart sounds. Absent: systolic murmur, diastolic murmur, rubs, gallop, clicks GI/Abdominal exam: Present: soft, normal bowel sounds. Absent: distended, tenderness, guarding, rebound, rigid Back exam: Present: full ROM. Absent: tenderness, paraspinal tenderness, vertebral tenderness Neurological exam: Present: alert, oriented X3, CN II-XII intact, reflexes normal. Absent: motor sensory deficit Skin exam: Present: warm, dry, intact, normal color. Absent: rash Course Vital Signs 01/08/18 01/08/18 01/08/18 00:46 00:50 01:50 Temperature 100.9 F H 99 F 98.8 F Pulse Rate 113 H 99 103 H Respiratory 22 20 20 Rate Blood Pressure 112/79 112/79 113/74 O2 Sat by Pulse 92 L 96 98 Oximetry EKG Findings - EKG Comments: EKG Findings:: EKG performed at 0:53 A. fib with rate 98 QRS 82 QT/QTC 308/393 patient has a history of A. fib Medical Decision Making - Medical Decision Making 51-year-old male present emergency department for fall, head injury. Patient CT is negative for acute intracranial bleed, neck and mildly. Patient complained of some intermittent dizziness and fever. Patient has influenza A. Patient was given Tamiflu. Patient's laboratory does show mild liver elevation though this may be related to his illness. Patient denies any recheck. Return parameters were discussed. - Lab Data Result diagrams: 05/03/17 01:41 05/03/17 01:41 Lab Results 05/03/17 05/03/17 05/03/17 Range/Units 01:32 01:41 01:41 WBC 5.1 (3.8-10.6) k/uL RBC 5.64 (4.30-5.90) m/uL Hgb 16.1 (13.0-17.5) gm/dL Hct 51.7 (39.0-53.0) % MCV 91.7 (80.0-100.0) fL MCH 28.6 (25.0-35.0) pg MCHC 31.2 (31.0-37.0) g/dL RDW 15.6 H (11.5-15.5) % Plt Count 118 L (150-450) k/uL Neutrophils % 76 % Lymphocytes % 11 % Monocytes % 9 % Eosinophils % 1 % Basophils % 1 % Neutrophils # 3.9 (1.3-7.7) k/uL Lymphocytes # 0.5 L (1.0-4.8) k/uL Monocytes # 0.4 (0-1.0) k/uL Eosinophils # 0.1 (0-0.7) k/uL Basophils # 0.0 (0-0.2) k/uL Sodium 142 (137-145) mmol/L Potassium 4.6 (3.5-5.1) mmol/L Chloride 103 (98-107) mmol/L Carbon Dioxide 28 (22-30) mmol/L Anion Gap 11 mmol/L BUN 19 (9-20) mg/dL Creatinine 1.00 (0.66-1.25) mg/dL Est GFR (MDRD) Af Amer >60 (>60 ml/min/1.73 sqM) Est GFR (MDRD) Non-Af >60 (>60 ml/min/1.73 sqM) Glucose 92 (74-99) mg/dL Plasma Lactic Acid Paddy (0.7-2.0) mmol/L Calcium 8.9 (8.4-10.2) mg/dL Magnesium 2.1 (1.6-2.3) mg/dL Total Bilirubin 0.8 (0.2-1.3) mg/dL AST 111 H (17-59) U/L ALT 107 H (21-72) U/L Alkaline Phosphatase 199 H (38-126) U/L Troponin I (0.000-0.034) ng/mL Total Protein 6.8 (6.3-8.2) g/dL Albumin 3.7 (3.5-5.0) g/dL Urine Color Urine Appearance (Clear) Urine pH (5.0-8.0) Ur Specific [place] (1.001-1.035) Urine Protein (Negative) Urine Glucose (UA) (Negative) Urine Ketones (Negative) Urine Blood (Negative) Urine Nitrite (Negative) Urine Bilirubin (Negative) Urine Urobilinogen (<2.0) mg/dL Ur Leukocyte Esterase (Negative) Influenza Type A RNA Detected H (Not Detectd) Influenza Type B (PCR) Not Detected (Not Detectd) 05/03/17 05/03/17 05/03/17 Range/Units 01:41 01:41 02:29 WBC (3.8-10.6) k/uL RBC (4.30-5.90) m/uL Hgb (13.0-17.5) gm/dL Hct (39.0-53.0) % MCV (80.0-100.0) fL MCH (25.0-35.0) pg MCHC (31.0-37.0) g/dL RDW (11.5-15.5) % Plt Count (150-450) k/uL Neutrophils % % Lymphocytes % % Monocytes % % Eosinophils % % Basophils % % Neutrophils # (1.3-7.7) k/uL Lymphocytes # (1.0-4.8) k/uL Monocytes # (0-1.0) k/uL Eosinophils # (0-0.7) k/uL Basophils # (0-0.2) k/uL Sodium (137-145) mmol/L Potassium (3.5-5.1) mmol/L Chloride (98-107) mmol/L Carbon Dioxide (22-30) mmol/L Anion Gap mmol/L BUN (9-20) mg/dL Creatinine (0.66-1.25) mg/dL Est GFR (MDRD) Af Amer (>60 ml/min/1.73 sqM) Est GFR (MDRD) Non-Af (>60 ml/min/1.73 sqM) Glucose (74-99) mg/dL Plasma Lactic Acid Paddy 1.0 (0.7-2.0) mmol/L Calcium (8.4-10.2) mg/dL Magnesium (1.6-2.3) mg/dL Total Bilirubin (0.2-1.3) mg/dL AST (17-59) U/L ALT (21-72) U/L Alkaline Phosphatase (38-126) U/L Troponin I <0.012 (0.000-0.034) ng/mL Total Protein (6.3-8.2) g/dL Albumin (3.5-5.0) g/dL Urine Color Yellow Urine Appearance Clear (Clear) Urine pH 5.5 (5.0-8.0) Ur Specific [place] 1.017 (1.001-1.035) Urine Protein Negative (Negative) Urine Glucose (UA) Negative (Negative) Urine Ketones Negative (Negative) Urine Blood Negative (Negative) Urine Nitrite Negative (Negative) Urine Bilirubin Negative (Negative) Urine Urobilinogen 6.0 (<2.0) mg/dL Ur Leukocyte Esterase Negative (Negative) Influenza Type A RNA (Not Detectd) Influenza Type B (PCR) (Not Detectd) Disposition Clinical Impression: Influenza, Fall, Head injury Disposition: HOME SELF-CARE Condition: Stable Instructions: Head Injury (ED), Influenza (ED) Additional Instructions: Please return to the Emergency Department if symptoms worsen or any other concerns. Prescriptions: Oseltamivir [Tamiflu] 75 mg PO Q12HR #10 cap Referrals: Ayla Garner MD [Primary Care Provider] - 1-2 days Time of Disposition: 03:00
[2017-05-03 01:57] LABS: Basophils % (A) 1 %; Eosinophils # (A) 0.1 k/uL (0-0.7); Eosinophils % (A) 1 %; HCT 51.7 % (39.0-53.0); HGB 16.1 gm/dL (13.0-17.5); Lymphocytes # (A) 0.5 k/uL (1.0-4.8); Lymphocytes % (A) 11 %; MCH 28.6 pg (25.0-35.0); MCHC 31.2 g/dL (31.0-37.0); MCV 91.7 fL (80.0-100.0); Mean Platelet Volume 9.1; Monocytes # (A) 0.4 k/uL (0-1.0); Monocytes % (A) 9 %; Neutrophils # (A) 3.9 k/uL (1.3-7.7); Neutrophils % (A) 76 %; Platelet Count 118 k/uL (150-450); RBC 5.64 m/uL (4.30-5.90); RDW 15.6 % (11.5-15.5); WBC 5.1 k/uL (3.8-10.6)
[2017-05-03 02:04] LABS: ALT 107 U/L (21-72); AST 111 U/L (17-59); Albumin 3.7 g/dL (3.5-5.0); Alkaline Phosphatase 199 U/L (38-126); Anion Gap 11 mmol/L; Blood Urea Nitrogen 19 mg/dL (9-20); Calcium 8.9 mg/dL (8.4-10.2); Carbon Dioxide 28 mmol/L (22-30); Chloride 103 mmol/L (98-107); Glucose 92 mg/dL (74-99); Magnesium 2.1 mg/dL (1.6-2.3); Sodium 142 mmol/L (137-145); Total Bilirubin 0.8 mg/dL (0.2-1.3); Total Protein 6.8 g/dL (6.3-8.2)
[2017-05-03 02:15] LABS: Potassium 4.6 mmol/L (3.5-5.1)
[2017-05-03 02:30] VITALS: PULSE 103
[2017-05-03 02:38] LABS: Appearance,Urine Clear (Clear); Bilirubin,Urine Negative (Negative); Blood,Urine Negative (Negative); Color,Urine Yellow; Glucose,Urine (UA) Negative (Negative); Ketones,Urine Negative (Negative); Leukocyte Esterase,Urine Negative (Negative); Nitrite,Urine Negative (Negative); PH, Urine 5.5 (5.0-8.0); Protein,Urine Negative (Negative); Specific Gravity,Urine 1.017 (1.001-1.035)
[2017-05-03] MEDS ORDERED: OSELTAMIVIR 75 MG CAP PO STA (03:00)
[2017-05-03 03:19] VITALS: BP 112/68; TEMP 98.7
== END 2017-05-03 03:18 | disposition home or self-care (01) ==
LOC: SUPCPDRO 00:41 → EC 00:41
DX: S09.90XA Unspecified injury of head, initial encounter (principal); J10.1 Influenza due to other identified influenza virus with other respiratory manifestations; R79.89 Other specified abnormal findings of blood chemistry; R00.0 Tachycardia, unspecified; R42 Dizziness and giddiness; M54.2 Cervicalgia; I48.91 Unspecified atrial fibrillation; G47.33 Obstructive sleep apnea (adult) (pediatric); Z87.891 Personal history of nicotine dependence; Z79.01 Long term (current) use of anticoagulants; Z79.899 Other long term (current) drug therapy; Z95.9 Presence of cardiac and vascular implant and graft, unspecified; Z99.89 Dependence on other enabling machines and devices; W23.0XXA Caught, crushed, jammed, or pinched between moving objects, initial encounter; Y92.009 Unspecified place in unspecified non-institutional (private) residence as the place of occurrence of the external cause
CPT/HCPCS: 36415; 70450; 71046; 72125; 80053; 81003; 83605; 83735; 84484; 85025; 87040; 87502; 93005; 96360; 99284

== ENCOUNTER 2017-09-12 03:51 | Emergency (ER) | payer MEDICARE, OTHER ==
[2017-09-12 04:00] VITALS: RESP 16; TEMP 98
[2017-09-12] MEDS ORDERED: RX INFO: IV CONTRAST WAS GIVEN 1 EACH MISC MISCELLANE PRN (04:00)
--- NOTE | 2017-09-12 04:03 | ED ---
General Adult HPI - General Chief complaint: Abdominal Pain Stated complaint: Flank Pain Time Seen by Provider: 09/12/17 03:51 Source: patient, EMS, RN notes reviewed Mode of arrival: EMS Limitations: no limitations - History of Present Illness Initial comments: This is a 51-year-old male who presents emergency Department complaining that he woke up this evening with bilateral lower back pain and diffuse abdominal pain. Patient states he has not been nauseous or vomited. Patient denies diarrhea. Patient denies constipation. Patient states he has muscular dystrophy but this does not feel similar to his muscular dystrophy pain he had in the past. Patient states the pain is pretty constant but worsens if he lays flat or stands up. Patient states he also history of atrial fibrillation with a on Xarelto and digoxin for it. Patient denies any chest pain difficulty breathing or shortness of breath. Patient denies any headache patient denies numbness weakness. Patient denies any history of kidney stones. Patient denies dysuria hematuria urinary frequency. - Related Data Home Medications Medication Instructions Recorded Confirmed Gabapentin 600 mg PO TID 03/01/14 05/03/17 Rivaroxaban [Xarelto] 20 mg PO AC-SUPPER 01/11/15 05/03/17 Multivitamins, Thera [Multivitamin 1 tab PO DAILY 11/17/15 05/03/17 (formulary)] Omeprazole 20 mg PO BID 11/17/15 05/03/17 Digoxin [Lanoxin] 125 mcg PO DAILY 04/07/16 05/03/17 Baclofen [Lioresal] 10 mg PO TID PRN 05/07/16 05/03/17 Polyethylene Glycol 3350 [Miralax] 17 gm PO DAILY PRN 01/18/17 05/03/17 Previous Rx's Medication Instructions Recorded Oseltamivir [Tamiflu] 75 mg PO Q12HR #10 cap 05/03/17 Allergies Allergy/AdvReac Type Severity Reaction Status Date / Time No Known Allergies Allergy Verified 05/03/17 00:51 Review of Systems ROS Statement: Those systems with pertinent positive or pertinent negative responses have been documented in the HPI. ROS Other: All systems not noted in ROS Statement are negative. 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 History of Any Multi-Drug Resistant Organisms: None Reported Past Surgical History: Heart Catheterization Additional Past Surgical History / Comment(s): bilateral cataract removal with lens implants surgery, normal cardiac cath -2013, colonoscopy with 2 benign polyps removed Past Anesthesia/Blood Transfusion Reactions: No Reported Reaction Additional Past Anesthesia/Blood Transfusion Reaction / Comment(s): Pt states due to mytonic muscular dystrophy he is unable to have general or spinal anesthesia. Past Psychological History: No Psychological Hx Reported Smoking Status: Former smoker Past Alcohol Use History: None Reported Past Drug Use History: None Reported - Past Family History Father Family Medical History: GERD/Reflux Additional Family Medical History / Comment(s): myotonic muscular dystropy, gerd. father is no longer living-he had a cardiac arrest at the age of 67yrs. Mother History Unknown: Yes Family Medical History: Cancer Additional Family Medical History / Comment(s): BREAST CANCER. Mother is 81 yrs old. General Exam - General Exam Comments Initial Comments: GENERAL: Patient is well-developed and well-nourished. Patient is nontoxic and well- hydrated and is in mild distress. ENT: Neck is soft and supple. No significant lymphadenopathy is noted. Oropharynx is clear. Moist mucous membranes. Neck has full range of motion without eliciting any pain. EYES: The sclera were anicteric and conjunctiva were pink and moist. Extraocular movements were intact and pupils were equal round and reactive to light. Eyelids were unremarkable. PULMONARY: Unlabored respirations. Good breath sounds bilaterally. No audible rales rhonchi or wheezing was noted. CARDIOVASCULAR: There is a regular rate and rhythm without any murmurs gallops or rubs. ABDOMEN: Abdomen is slightly tender in the right upper quadrant and the left upper quadrant there is no rebound or guarding SKIN: Skin is clear with no lesions or rashes and otherwise unremarkable. NEUROLOGIC: Patient is alert and oriented x3. Cranial nerves II through XII are grossly intact. Motor and sensory are also intact. Normal speech, volume and content. Symmetrical smile. MUSCULOSKELETAL: Normal extremities with adequate strength and full range of motion. LYMPHATICS: No significant lymphadenopathy is noted PSYCHIATRIC: Normal psychiatric evaluation. Limitations: no limitations Course Vital Signs 09/12/17 09/12/17 03:56 06:17 Temperature 98.0 F Pulse Rate 83 73 Respiratory 16 16 Rate Blood Pressure 120/83 104/78 O2 Sat by Pulse 93 L 97 Oximetry Medical Decision Making - Medical Decision Making Patient's CT of the abdomen shows no acute abnormality. All lab work and urine results are back and were normal. I spoke with the patient. Patient feels comfortable going home. - Lab Data Result diagrams: 09/12/17 04:15 09/12/17 04:15 Lab Results 09/12/17 09/12/17 09/12/17 Range/Units 04:15 04:15 05:28 WBC 3.6 L (3.8-10.6) k/uL RBC 5.36 (4.30-5.90) m/uL Hgb 15.9 (13.0-17.5) gm/dL Hct 47.5 (39.0-53.0) % MCV 88.6 (80.0-100.0) fL MCH 29.6 (25.0-35.0) pg MCHC 33.4 (31.0-37.0) g/dL RDW 14.3 (11.5-15.5) % Plt Count 125 L (150-450) k/uL Neutrophils % 56 % Lymphocytes % 30 % Monocytes % 7 % Eosinophils % 4 % Basophils % 0 % Neutrophils # 2.0 (1.3-7.7) k/uL Lymphocytes # 1.1 (1.0-4.8) k/uL Monocytes # 0.3 (0-1.0) k/uL Eosinophils # 0.2 (0-0.7) k/uL Basophils # 0.0 (0-0.2) k/uL Sodium 148 H (137-145) mmol/L Potassium 4.9 (3.5-5.1) mmol/L Chloride 107 (98-107) mmol/L Carbon Dioxide 31 H (22-30) mmol/L Anion Gap 10 mmol/L BUN 19 (9-20) mg/dL Creatinine 0.80 (0.66-1.25) mg/dL Est GFR (CKD-EPI)AfAm >90 (>60 ml/min/1.73 sqM) Est GFR (CKD-EPI)NonAf >90 (>60 ml/min/1.73 sqM) Glucose 99 (74-99) mg/dL Calcium 8.7 (8.4-10.2) mg/dL Total Bilirubin 0.3 (0.2-1.3) mg/dL AST 33 (17-59) U/L ALT 39 (21-72) U/L Alkaline Phosphatase 74 (38-126) U/L Total Protein 5.9 L (6.3-8.2) g/dL Albumin 3.3 L (3.5-5.0) g/dL Amylase 50 (30-110) U/L Lipase 123 (23-300) U/L Urine Color Light Yellow Urine Appearance Clear (Clear) Urine pH 7.0 (5.0-8.0) Ur Specific [place] 1.029 (1.001-1.035) Urine Protein Negative (Negative) Urine Glucose (UA) Negative (Negative) Urine Ketones Negative (Negative) Urine Blood Negative (Negative) Urine Nitrite Negative (Negative) Urine Bilirubin Negative (Negative) Urine Urobilinogen <2.0 (<2.0) mg/dL Ur Leukocyte Esterase Negative (Negative) Disposition Clinical Impression: Abdominal pain, Constipation Disposition: HOME SELF-CARE Instructions: Abdominal Pain (ED), Constipation (ED), High Fiber Diet (ED) Is patient prescribed a controlled substance at d/c from ED?: No Referrals: Ayla Garner MD [Primary Care Provider] - 1-2 days Time of Disposition: 06:23
[2017-09-12 04:35] LABS: Basophils % (A) 0 %; Eosinophils # (A) 0.2 k/uL (0-0.7); Eosinophils % (A) 4 %; HCT 47.5 % (39.0-53.0); HGB 15.9 gm/dL (13.0-17.5); Lymphocytes # (A) 1.1 k/uL (1.0-4.8); Lymphocytes % (A) 30 %; MCH 29.6 pg (25.0-35.0); MCHC 33.4 g/dL (31.0-37.0); MCV 88.6 fL (80.0-100.0); Mean Platelet Volume 8.6; Monocytes # (A) 0.3 k/uL (0-1.0); Monocytes % (A) 7 %; Neutrophils % (A) 56 %; Platelet Count 125 k/uL (150-450); RBC 5.36 m/uL (4.30-5.90); RDW 14.3 % (11.5-15.5); WBC 3.6 k/uL (3.8-10.6)
--- NOTE | 2017-09-12 04:41 | XR ---
EXAMINATION TYPE: XR KUB DATE OF EXAM: 09/12/2017 COMPARISON: 01/19/2017 HISTORY: Flank pain TECHNIQUE: 2 views FINDINGS: Bowel gas pattern is normal. There is no sign of intestinal obstruction or pneumoperitoneum . There is some linear density at the right lung base. There is interposition of the hepatic flexure of the colon which is a normal variant. There are no pathologic calcifications over the kidneys. IMPRESSION: Nonacute abdomen. There is some atelectasis at the right lung base that is probably uncha nged compared to old exam.
[2017-09-12 04:45] LABS: ALT 39 U/L (21-72); AST 33 U/L (17-59); Albumin 3.3 g/dL (3.5-5.0); Alkaline Phosphatase 74 U/L (38-126); Amylase 50 U/L (30-110); Anion Gap 10 mmol/L; Blood Urea Nitrogen 19 mg/dL (9-20); Calcium 8.7 mg/dL (8.4-10.2); Carbon Dioxide 31 mmol/L (22-30); Chloride 107 mmol/L (98-107); Glucose 99 mg/dL (74-99); Lipase 123 U/L (23-300); Potassium 4.9 mmol/L (3.5-5.1); Sodium 148 mmol/L (137-145); Total Bilirubin 0.3 mg/dL (0.2-1.3); Total Protein 5.9 g/dL (6.3-8.2)
--- NOTE | 2017-09-12 05:42 | CT ---
EXAMINATION TYPE: CT abdomen pelvis w con DATE OF EXAM: 09/12/2017 COMPARISON: 01/18/2017 HISTORY: Bilateral flank pain. CT DLP: mGycm Automated exposure control for dose reduction was used. TECHNIQUE: Helical acquisition of images was performed from the lung bases through the pelvis. CONTRAST: The contrast was Isovue 100 mL. FINDINGS: There is some patchy atelectasis at the lung bases. There is no pericardial effusion. There is no ple ural effusion. Liver shows no focal defect. There is interposition of the hepatic flexure of the colo n. Spleen appears normal. There is no pancreatic mass. Bile ducts are not dilated. Gallbladder appear s normal. There is no adrenal mass. Kidneys show satisfactory contrast opacification. There is no hydronephrosi s. Appendix appears normal. I see no intestinal wall thickening. There are no dilated loops. Bladder distends smoothly. There are a few sigmoid diverticula. There is no sign of diverticulitis. There is no evidence of free air. There is no ascites. I see no bony destructive process. CONCLUSION: Patchy atelectasis at the lung bases similar to old exam. Normal appendix. No sign of acute abdomen a nd pelvis. There is clearing of the dilated fluid-filled small bowel compared to old exam. No evidenc e of renal mass or obstruction. I do not see a cause for the bilateral flank pain.
[2017-09-12 06:12] LABS: Appearance,Urine Clear (Clear); Bilirubin,Urine Negative (Negative); Blood,Urine Negative (Negative); Color,Urine Light Yellow; Glucose,Urine (UA) Negative (Negative); Ketones,Urine Negative (Negative); Leukocyte Esterase,Urine Negative (Negative); Nitrite,Urine Negative (Negative); Protein,Urine Negative (Negative); Specific Gravity,Urine 1.029 (1.001-1.035); Urobilinogen,Urine <2.0 mg/dL (<2.0)
[2017-09-12 06:18] VITALS: BP 104/78; PULSE 73
== END 2017-09-12 06:43 | disposition home or self-care (01) ==
LOC: EC 03:51
DX: K59.00 Constipation, unspecified (principal); M54.5 Low back pain; G71.11 Myotonic muscular dystrophy; I48.91 Unspecified atrial fibrillation; G47.33 Obstructive sleep apnea (adult) (pediatric); Z87.891 Personal history of nicotine dependence; Z79.01 Long term (current) use of anticoagulants; Z79.899 Other long term (current) drug therapy; Z99.89 Dependence on other enabling machines and devices; Z83.79 Family history of other diseases of the digestive system; Z82.69 Family history of other diseases of the musculoskeletal system and connective tissue
CPT/HCPCS: 36415; 80053; 82150; 83690; 85025; 81003; 74018; 74177; 99284; Q9967

== ENCOUNTER → 2017-10-14 | Outpatient (CLI) | payer MEDICARE, OTHER ==
--- NOTE | 2017-10-15 07:33 | CT ---
EXAMINATION TYPE: CT lumbar spine wo con DATE OF EXAM: 10/14/2017 COMPARISON: NONE HISTORY: Low back pain CT DLP: 443.1 mGycm CONTRAST: None TECHNIQUE: CT of the lumbar spine is performed on a spiral scan at 3 mm thick sections. Reconstructed images are performed in the coronal and sagittal planes. FINDINGS: T11-T12:No focal disc herniation or significant disc bulge is evident. No spinal canal stenosis or neural foraminal stenosis is present. T12-L1: No focal disc herniation or significant disc bulge is evident. No spinal canal stenosis or neural foraminal stenosis is present. L1-L2: No focal disc herniation or significant disc bulge is evident. No spinal canal stenosis or n eural foraminal stenosis is present L2-L3: Mild broad-based disc bulge is present with anterior thecal sac contact. No spinal canal steno sis present. Some facet degenerative changes present. L3-L4: Mild disc bulge is present with anterior thecal sac contact. Facet hypertrophy is present. No spinal canal stenosis or neural foraminal stenosis is present. L4-L5: There is a minimal retrolisthesis of L4 on L5. Uncovering of the disc has mild anterior thecal sac compression. No spinal canal stenosis is present. Neural foramen are patent. Facet degenerative changes are present. L5-S1: Posterior-inferior endplate spurring is present at L5. This has mild anterior thecal sac compr ession. No spinal canal stenosis or neural foraminal stenosis present. Facet degenerative changes are present. IMPRESSION: 1. Mild disc bulging with anterior thecal sac compression L2-3, L3-4, L4-5. 2. Mild retrolisthesis of L4 on L5. 3. Posterior inferior endplate spurring L5 with mild anterior thecal sac compression L5-S1.
== END | disposition home or self-care (01) ==
LOC: RADCTMAIN 13:32
PROVIDERS: ATTEND Internal Medicine
DX: M51.26 Other intervertebral disc displacement, lumbar region (principal); M43.16 Spondylolisthesis, lumbar region
CPT/HCPCS: 72131